=== PATIENT | male | born 1975 | race African-American/Black ===

== ENCOUNTER 2017-05-10 04:53 | Inpatient (IN) | payer MEDICAID, OTHER ==
[2017-05-10] VITALS (7 sets, daily range): BP systolic 119–148; BP diastolic 66–101; PULSE 50–91; RESP 16–18; TEMP 97.6–98.4; O2SAT 97–99
[~2017-05-10] VITALS: Ht 193 cm; Wt 77.0 kg
[~2017-05-10 04:53] MED LIST: FLUP125P IM; FLUP1TAB PO; PROP1TAB66 PO; TRAZ100T4 PO; ZYPR20TA PO
[2017-05-10] MEDS ORDERED: OLANZapine IM 10 MG VIAL IM ONE (05:15)
--- NOTE | 2017-05-10 05:28 | PD ---
HPI Chief Complaint: Psychiatric Symptoms Time Seen by Provider: 05:10 Travel History International Travel<30 days: No Contact w/Intl Traveler<30days: No Traveled to known affect area: No History of Present Illness HPI This is a 42-year-old male history of schizophrenia who presents for evaluation. Apparently he was dropped off by the police. Upon initial examination the patient is very disorganized, hyperverbal, requesting something to drink. When asked about his chief complaint today he reports "I'm depressed and looking for by . [facility] [place] the computers were blank and she didn't me." When asked about his history of schizophrenia and who his psychiatrist as he reports "[place] this patient is a poor historian secondary to his psychosis and decompensated schizophrenia and he was therefore placed under a López act for his own safety. PFSH Past Medical History Blood Disorders: No Bipolar Disorder: Yes Depression: Yes Cancer: No Cardiovascular Problems: No Diabetes: No Diminished Hearing: No Endocrine: No Genitourinary: No Headaches: No Immune Disorder: No Musculoskeletal: Yes Neurologic: No Psychiatric: Yes Respiratory: Yes Immunizations Current: Yes Schizophrenia: Yes Seizures: No Past Surgical History Abdominal Surgery: No AICD: No Cardiac Surgery: No Ear Surgery: No Endocrine Surgery: No Eye Surgery: Yes (STITCHES ABOVE EYE) Genitourinary Surgery: No Gynecologic Surgery: No Neurologic Surgery: No Oral Surgery: Yes (TEETH PULLED AND LIP SUTURED) Pacemaker: No Thoracic Surgery: No Other Surgery: No Social History Alcohol Use: Yes (per hx..DRINKS BEER ON OCCASION) Tobacco Use: Yes (1/2 PPD) Substance Use: Yes (marijuana, flakka) Allergies-Medications (Allergen,Severity, Reaction): Coded Allergies: sodium hypochlorite solution (Unverified Allergy, Mild, 05/10/17) Reported Meds & Prescriptions Reported Meds & Active Scripts Active No Active Prescriptions or Reported Medications Review of Systems ROS Limitations: Altered Mental Status, Psychotic Except as stated in HPI: all other systems reviewed are Neg Physical Exam Exam Limitations: Poor Historian, Combative, Psychotic Narrative GENERAL: Somewhat disheveled-appearing male who is agitated on initial examination. SKIN: Warm and dry. HEAD: Atraumatic. Normocephalic. EYES: Pupils equal and round. No scleral icterus. No injection or drainage. ENT: No nasal bleeding or discharge. Mucous membranes pink and moist. NECK: Trachea midline. No JVD. CARDIOVASCULAR: Regular rate and rhythm. No murmur appreciated. RESPIRATORY: No accessory muscle use. Clear to auscultation. Breath sounds equal bilaterally. GASTROINTESTINAL: Abdomen soft, non-tender, nondistended. Hepatic and splenic margins not palpable. MUSCULOSKELETAL: No obvious deformities. No clubbing. No cyanosis. No edema. NEUROLOGICAL: Awake and alert. No obvious cranial nerve deficits. Motor grossly within normal limits. Normal speech. PSYCHIATRIC: Insight and judgment are impaired. Disorganized thought process. Data Data Last Documented VS Vital Signs Date Time Temp Pulse Resp B/P (MAP) Pulse Ox O2 Delivery O2 Flow Rate FiO2 05/10/17 04:55 98.4 91 16 142/101 (115) 98 Orders Orders Complete Blood Count With Diff (05/10/17 05:03) Comprehensive Metabolic Panel (05/10/17 05:03) Psych Screen (05/10/17 05:03) Drug Screen, Random Urine (05/10/17 05:03) Alcohol (Ethanol) (05/10/17 05:03) Olanzapine Inj (Zyprexa Inj) (05/10/17 05:15) ^ Sitter (05/10/17 05:28) Lorazepam Inj (Ativan Inj) (05/10/17 05:48) Lorazepam Inj (Ativan Inj) (05/10/17 06:00) Restraints Violent (05/10/17 05:54) Labs Laboratory Tests Test 05/10/17 05:15 White Blood Count 7.9 TH/MM3 Red Blood Count 5.13 MIL/MM3 Hemoglobin 12.5 GM/DL Hematocrit 38.2 % Mean Corpuscular Volume 74.6 FL Mean Corpuscular Hemoglobin 24.4 PG Mean Corpuscular Hemoglobin Concent 32.7 % Red Cell Distribution Width 14.3 % Platelet Count 192 TH/MM3 Mean Platelet Volume 9.6 FL Neutrophils (%) (Auto) 68.3 % Lymphocytes (%) (Auto) 21.7 % Monocytes (%) (Auto) 7.8 % Eosinophils (%) (Auto) 1.2 % Basophils (%) (Auto) 1.0 % Neutrophils # (Auto) 5.4 TH/MM3 Lymphocytes # (Auto) 1.7 TH/MM3 Monocytes # (Auto) 0.6 TH/MM3 Eosinophils # (Auto) 0.1 TH/MM3 Basophils # (Auto) 0.1 TH/MM3 CBC Comment DIFF FINAL Differential Comment Blood Urea Nitrogen 16 MG/DL Creatinine 1.12 MG/DL Random Glucose 78 MG/DL Total Protein 7.9 GM/DL Albumin 4.0 GM/DL Calcium Level 9.2 MG/DL Alkaline Phosphatase 44 U/L Aspartate Amino Transf (AST/SGOT) 32 U/L Alanine Aminotransferase (ALT/SGPT) 33 U/L Total Bilirubin 0.6 MG/DL Sodium Level 141 MEQ/L Potassium Level 4.0 MEQ/L Chloride Level 107 MEQ/L Carbon Dioxide Level 23.5 MEQ/L Anion Gap 11 MEQ/L Estimat Glomerular Filtration Rate 88 ML/MIN Ethyl Alcohol Level LESS THAN 3 MG/DL MDM Medical Decision Making Medical Screen Exam Complete: Yes Emergency Medical Condition: Yes Medical Record Reviewed: Yes Differential Diagnosis Schizophrenia, acute psychosis, substance induced mood disorder, encephalitis, meningitis Narrative Course This patient was placed under López act secondary to decompensated schizophrenia and poor insight into his disease process. Zyprexa was initiated. Mental health screening discussed with the patient. Psychiatric screen ordered. The patient required additional sedation in the form of 1 mg Ativan and physical restraints. A sitter has been ordered. The lab work has been reviewed. He is medically cleared for psychiatric disposition. Diagnosis Primary Impression: Schizophrenia Qualified Codes: F20.9 - Schizophrenia, unspecified Scripts No Active Prescriptions or Reported Meds Siva Campos May 10, 2017 05:28
[2017-05-10 05:36] LABS: AUTOMATED NEUTROPHIL # 5.4 TH/MM3 (1.8-7.7); BASOPHIL # 0.1 TH/MM3 (0-0.2); EOSINOPHIL # 0.1 TH/MM3 (0-0.4); EOSINOPHIL % 1.2 % (0.0-4.0); HEMATOCRIT 38.2 % (39.0-51.0); HEMO FLAGS DIFF FINAL; LYMPH % 21.7 % (9.0-44.0); LYMPHOCYTE # 1.7 TH/MM3 (1.0-4.8); MEAN CELL VOLUME 74.6 FL (80.0-100.0); MEAN CORPUSCULAR HEMOGLOBIN 24.4 PG (27.0-34.0); MEAN CORPUSCULAR HGB CONC 32.7 % (32.0-36.0); MONO % 7.8 % (0.0-8.0); NEUT % 68.3 % (16.0-70.0); PLATELET COUNT 192 TH/MM3 (150-450); RED BLOOD COUNT 5.13 MIL/MM3 (4.50-5.90); RED CELL DISTRIBUTION WIDTH 14.3 % (11.6-17.2); WHITE BLOOD COUNT 7.9 TH/MM3 (4.0-11.0)
[2017-05-10] MEDS ORDERED: LORazepam 2 MG/ML VIAL ONE (05:48)
[2017-05-10 06:00] LABS: ALT (GPT) 33 U/L (12-78); ANION GAP 11 MEQ/L (5-15); AST (GOT) 32 U/L (15-37); BICARBONATE 23.5 MEQ/L (21.0-32.0); BLOOD UREA NITROGEN 16 MG/DL (7-18); CHLORIDE 107 MEQ/L (98-107); GLOMERULAR FILTRATION RATE 88 ML/MIN (>89); SODIUM (NA) 141 MEQ/L (136-145)
[2017-05-10] MEDS ORDERED: LORazepam 2 MG/ML VIAL IV PUSH ONE (06:00)
[2017-05-10 06:02] LABS: ALKALINE PHOSPHATASE 44 U/L (45-117); TOTAL BILIRUBIN ADULT 0.6 MG/DL (0.2-1.0)
[2017-05-10 06:12] LABS: ALCOHOL LESS THAN 3 MG/DL (0-5)
[2017-05-10] MEDS ORDERED: ACETAMINOPHEN 325 MG TAB PO PRN (15:00)
[2017-05-10] MEDS ORDERED: LORazepam 1 MG TAB PO PRN (15:00)
[2017-05-10] MEDS ORDERED: LORazepam 2 MG/ML VIAL IM PRN (15:00)
[2017-05-10] MEDS ORDERED: ALUMINUM/MAGNESIUM/SIMETH 30 ML CUP PO PRN (15:00)
[2017-05-10] MEDS ORDERED: MAGNESIUM HYDROXIDE SUSP 30 ML CUP PO PRN (15:00)
[2017-05-10] MEDS ORDERED: traZODone HCL 100 MG TAB PO SCH (21:00)
[2017-05-11 05:45] VITALS: BP 113/61; PULSE 61; RESP 17; TEMP 97.5; O2SAT 100
[2017-05-11] MEDS ORDERED: diphenhydrAMINE HCL 50 MG/ML VIAL IM ONE (08:15)
[2017-05-11] MEDS ORDERED: HALOPERIDOL LACTATE 5 MG/ML AMP IM ONE (08:15)
[2017-05-11] MEDS ORDERED: LORazepam 2 MG/ML VIAL IM ONE (08:15)
[2017-05-11 10:06] LABS: ANION GAP 6 MEQ/L (5-15); BLOOD UREA NITROGEN 15 MG/DL (7-18); CHLORIDE 108 MEQ/L (98-107); GLOMERULAR FILTRATION RATE 95 ML/MIN (>89); POTASSIUM 3.8 MEQ/L (3.5-5.1); SODIUM (NA) 140 MEQ/L (136-145)
[2017-05-11 10:13] LABS: HDL CHOLESTEROL 49.9 MG/DL (40.0-60.0); LDL CHOLESTEROL 79 MG/DL (0-99)
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
[2017-05-11] MEDS ORDERED: BENZTROPINE MESYLATE 2 MG/2 ML VIAL IM PRN (10:30)
[2017-05-11] MEDS ORDERED: HALOPERIDOL 5 MG TAB PO PRN (10:30)
[2017-05-11] MEDS ORDERED: HALOPERIDOL LACTATE 5 MG/ML AMP IM PRN (10:30)
[2017-05-11] MEDS ORDERED: BENZTROPINE MESYLATE 1 MG TAB PO PRN (11:00)
--- NOTE | 2017-05-11 11:00 | EKG ---
Date Performed: 05/11/2017 Time Performed: 09:46:45 PTAGE: 42 years EKG: SINUS BRADYCARDIA VOLTAGE CRITERIA FOR LVH ABNORMAL ECG PREVIOUS TRACING : 03/31/2016 20.11 No significant change from previous tracing noted. DOCTOR: Elliott Gutierrez Interpretating Date/Time 05/11/2017 11:00:03
[2017-05-11 12:10] LABS: HEMOGLOBIN A1a 1.7 %; HEMOGLOBIN A1b 0.8 %; HEMOGLOBIN Ao 83.1 %; HEMOGLOBIN F 2.6 %; HEMOGLOBIN LA1C 1.9 %; HEMOGLOBIN P3 3.8 %
[2017-05-11] MEDS ORDERED: LORazepam 1 MG TAB PO PRN (15:00)
[2017-05-11] MEDS ORDERED: LORazepam 2 MG/ML VIAL IM PRN (15:00)
--- NOTE | 2017-05-11 15:10 | PD.CONS ---
HPI Service [facility] Consult Requested By Psychiatry Reason for Consult Medical management Primary Care Physician Unknown Diagnoses: History of Present Illness 42 year-old -[place] male with a history of schizophrenia admitted to inpatient psychiatry under López act secondary to acute mood disorder, is being evaluated for BP of 142/101 on admission. Patient denies any prior diagnosis of hypertension. He currently denies any chest pain or shortness of breath. He has a family history positive for hypertension. Review of Systems Except as stated in HPI: all other systems reviewed are Neg Past Family Social History Allergies: Coded Allergies: sodium hypochlorite solution (Unverified Allergy, Mild, 05/10/17) Past Medical History Blood Disorders: No Bipolar Disorder: Yes Depression: Yes Schizophrenia: Yes Past Surgical History Eye Surgery: Yes (STITCHES ABOVE EYE) Oral Surgery: Yes (TEETH PULLED AND LIP SUTURED) Family History Father has a history of hypertension Mother Has history of schizophrenia Social History Alcohol Use: Yes (per hx..DRINKS BEER ON OCCASION) Tobacco Use: Yes (1/2 PPD) Substance Use: Yes (marijuana, flakka) Physical Exam Vital Signs Vital Signs Date Time Temp Pulse Resp B/P (MAP) Pulse Ox O2 Delivery O2 Flow Rate FiO2 05/11/17 05:45 97.5 61 17 113/61 (78) 100 05/10/17 15:45 98.1 51 18 130/77 (94) Physical Exam GENERAL: This is a well-nourished, well-developed patient, in no apparent distress. SKIN: No rashes, ecchymoses or lesions. Cool and dry. HEAD: Atraumatic. Normocephalic. No temporal or scalp tenderness. EYES: Pupils equal round and reactive. Extraocular motions intact. No scleral icterus. No injection or drainage. ENT: Nose without bleeding, purulent drainage or septal hematoma. Throat without erythema, tonsillar hypertrophy or exudate. Uvula midline. Airway patent. NECK: Trachea midline. No JVD or lymphadenopathy. Supple, nontender, no meningeal signs. CARDIOVASCULAR: Regular rate and rhythm without murmurs, gallops, or rubs. RESPIRATORY: Clear to auscultation. Breath sounds equal bilaterally. No wheezes , rales, or rhonchi. GASTROINTESTINAL: Abdomen soft, non-tender, nondistended. No hepato-splenomegaly , or palpable masses. No guarding. MUSCULOSKELETAL: Extremities without clubbing, cyanosis, or edema. No joint tenderness, effusion, or edema noted. No calf tenderness. Negative Homans sign bilaterally. NEUROLOGICAL: Awake and alert. Cranial nerves II through XII intact. Motor and sensory grossly within normal limits. Five out of 5 muscle strength in all muscle groups. Normal speech. Laboratory Laboratory Tests Test 05/11/17 09:16 Blood Urea Nitrogen 15 Creatinine 1.05 Random Glucose 62 Calcium Level 8.7 Sodium Level 140 Potassium Level 3.8 Chloride Level 108 Carbon Dioxide Level 26.0 Anion Gap 6 Estimat Glomerular Filtration Rate 95 Hemoglobin A1c 5.8 Triglycerides Level 39 Cholesterol Level 137 LDL Cholesterol 79 HDL Cholesterol 49.9 Cholesterol/HDL Ratio 2.74 Result Diagram: 05/10/17 0515 05/11/17 0916 Assessment and Plan Assessment and Plan 42-year-old man with Schizophrenia Acute Mood disorder Management per psychiatry Essential hypertension Start Norvasc 5 mg daily Normal LDL therefore no need to initiate statin therapy DVT prophylaxis: Encourage ambulation Thank you for this consultation; [facility] will sign off and reconsult when necessary Code Status Full code Discussed Condition With Patient Alexander Peacock MD May 11, 2017 15:10
[2017-05-11 18:04] VITALS: BP 113/75; PULSE 54; RESP 18; TEMP 97.9; O2SAT 99
[2017-05-11] MEDS: OLANZapine ODT 20 MG TAB PO SCH (20:44)
[2017-05-11] MEDS: DIVALPROEX SODIUM E.R. 500 MG TAB PO SCH (20:44)
[2017-05-11] MEDS: BENZTROPINE MESYLATE 1 MG TAB PO SCH (20:44)
[2017-05-12 05:50] VITALS: BP 118/58; PULSE 65; RESP 18; TEMP 97.3; O2SAT 98
[2017-05-12] MEDS: DIVALPROEX SODIUM E.R. 500 MG TAB PO SCH ×2 (09:29→21:08)
[2017-05-12] MEDS: amLODIPine BESYLATE 5 MG TAB PO SCH (09:29)
[2017-05-12] MEDS: BENZTROPINE MESYLATE 1 MG TAB PO SCH ×2 (09:30→21:08)
--- NOTE | 2017-05-12 12:47 | HHI.PYPN ---
Subjective Remarks Patient seen and examined with nurse. Chart reviewed. Case discussed with nursing staff who reports patient has been cooperative. Reporting a female voice guiding him like an janeth from [employer]. On my examination today, patient is calm and cooperative. Says that he was hearing angels voices and could feel them "like ghosts." Affect euthymic. Slept well overnight. Remains agreeable to placement. Denies side effects from medications. No physical complaints. Review of Systems ROS Limitations: Psychotic, Poor Historian Except as stated in HPI: all other systems reviewed are Neg Objective Alert: Yes [place]: Person, Place Mood: Calm Affect: Euthymic Memory Intact: Comment (not formally assessed) Hallucinations: Auditory (angels voices), Visual (angels) Delusions: No Delusion Type: Other (none) Suicidal: Ideation (no SI) Homicidal: Ideation (no HI) Insight/Judgment Poor Remarks No motor abnormalities noted. Thought process fairly linear. Grooming and hygiene fair. Labs Labs reviewed. Extended urine toxicology pending. Vitals/IOs Vital Signs Date Time Temp Pulse Resp B/P (MAP) Pulse Ox O2 Delivery O2 Flow Rate FiO2 05/12/17 05:50 97.3 65 18 118/58 (78) 98 05/10/17 13:06 Room Air Assessment & Plan Problem List: (1) Schizophrenia ICD Codes: F20.9 - Schizophrenia, unspecified Status: Acute (2) Cannabis abuse ICD Codes: F12.10 - Cannabis abuse, uncomplicated Status: Chronic Assessment & Plan Patient still verbalizing some psychotic symptoms and requires more time for antipsychotics to exert full effect. Continue Prolixin and Zyprexa as ordered. Could consider Prolixin Dec. Continue Depakote as ordered. Check a Depakote level beginning of next week. Continue other medications and care as ordered. Patient may sign voluntary. Justification for Cont. Inpt. Impairment in reality construction. High risk for decompensation in less restrictive environment. Discharge Planning Pending psychiatric stabilization. ?Placement Request HC Surrog/Guard Advoc?: No Problem Qualifiers (1) Schizophrenia: Qualified Codes: F20.3 - Undifferentiated schizophrenia Mt Bhat MD May 12, 2017 12:47
[2017-05-12 17:49] VITALS: BP 149/95; PULSE 54; RESP 18; TEMP 97.8; O2SAT 100
[2017-05-12] MEDS: OLANZapine ODT 20 MG TAB PO SCH (21:12)
[2017-05-13 06:00] VITALS: BP 131/91; PULSE 54; RESP 18; TEMP 97.5; O2SAT 99
[2017-05-13] MEDS: amLODIPine BESYLATE 5 MG TAB PO SCH (09:28)
[2017-05-13] MEDS: BENZTROPINE MESYLATE 1 MG TAB PO SCH ×2 (09:28→20:54)
[2017-05-13] MEDS: DIVALPROEX SODIUM E.R. 500 MG TAB PO SCH ×2 (09:28→20:54)
[2017-05-13 18:36] VITALS: BP 124/74; PULSE 64; RESP 18; TEMP 97.6; O2SAT 97
[2017-05-13] MEDS: OLANZapine ODT 20 MG TAB PO SCH (20:54)
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
[2017-05-14 06:05] VITALS: BP 116/77; PULSE 50; RESP 18; TEMP 97.1; O2SAT 98
[2017-05-14] MEDS: BENZTROPINE MESYLATE 1 MG TAB PO SCH ×2 (09:00→20:57)
[2017-05-14] MEDS: DIVALPROEX SODIUM E.R. 500 MG TAB PO SCH ×2 (09:00→20:56)
[2017-05-14] MEDS: amLODIPine BESYLATE 5 MG TAB PO SCH (09:00)
--- NOTE | 2017-05-14 12:17 | HHI.PYPN ---
Subjective Remarks Pt seen and discussed with staff. He remains labile and disorganized. He is compliant with medications.He remains paranoid and states that staff may be trying to set him up. "It's that black box. You didn't know I knew about the black box! That's how they set me up." Staff report that pt has been easier to de-escalate and has been more cooperative with care. Objective Alert: Yes [place]: Person, Place, Date Mood: Anxious Affect: Labile Memory Intact: Comment (fair) Hallucinations: Auditory Delusions: Yes Delusion Type: Paranoid Suicidal: Ideation (no SI) Homicidal: Ideation (no HI) Insight/Judgment poor Labs Test 05/14/17 11:18 Ammonia 19 MCMOL/L Valproic Acid (Depakene) Level 54 MCG/ML Vitals/IOs Vital Signs Date Time Temp Pulse Resp B/P (MAP) Pulse Ox O2 Delivery O2 Flow Rate FiO2 05/14/17 06:05 97.1 50 18 116/77 (90) 98 05/10/17 13:06 Room Air Assessment & Plan Problem List: (1) Schizophrenia ICD Codes: F20.9 - Schizophrenia, unspecified Status: Acute (2) Cannabis abuse ICD Codes: F12.10 - Cannabis abuse, uncomplicated Status: Chronic Assessment & Plan Continue current tx plan. Estimated LOS: days Justification for Cont. Inpt. impairments in reality testing Request HC Surrog/Guard Advoc?: No Problem Qualifiers (1) Schizophrenia: Qualified Codes: F20.3 - Undifferentiated schizophrenia Tawanna Acosta MD May 14, 2017 12:17
[2017-05-14 18:43] VITALS: BP 141/94; PULSE 73; RESP 16; TEMP 98.3; O2SAT 98
[2017-05-14] MEDS: OLANZapine ODT 20 MG TAB PO SCH (20:57)
[2017-05-15 06:11] VITALS: BP 121/80; PULSE 54; RESP 18; TEMP 97.2; O2SAT 98
[2017-05-15] MEDS: BENZTROPINE MESYLATE 1 MG TAB PO SCH (09:21)
[2017-05-15] MEDS: amLODIPine BESYLATE 5 MG TAB PO SCH (09:21)
[2017-05-15] MEDS: DIVALPROEX SODIUM E.R. 500 MG TAB PO SCH (09:22)
[2017-05-15] MEDS ORDERED: FLUP10TA PO (09:25)
[2017-05-15] MEDS ORDERED: AMLO5 PO (09:25)
[2017-05-15] MEDS ORDERED: Benztropine PO (09:25)
[2017-05-15] MEDS ORDERED: DEPA500T3 PO (09:25)
[2017-05-15] MEDS ORDERED: FLUP1INJ IM (09:25)
[2017-05-15] MEDS ORDERED: OLANZ20 PO (09:25)
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
[2017-05-17 08:25] LABS: ECSTASY (MDMA) UR NEG (NEG); HEROIN (6-ACETYLMORPHINE) UR NEG (NEG); OBMETHADONE UR NEG (NEG); PHENCYCLIDINE URINE NEG (NEG)
[2017-05-17 08:26] LABS: BATH SALTS (MDPV) UR NEG (NEG); GABAPENTIN UR NEG (NEG); HYDROMORPHONE U NEG (NEG); K2 SPICE UR NEG (NEG)
[2017-05-18] MEDS ORDERED: DEPA500T3 PO (10:49)
[2017-05-18] MEDS ORDERED: ZYPR20TA PO (10:49)
[2017-05-18] MEDS ORDERED: FLUP10TA PO (10:49)
[2017-05-18] MEDS ORDERED: BENZ0.5T PO (10:49)
== END 2017-05-15 12:15 | disposition home or self-care (01) | DRG 885 ==
LOC: NEPD 04:53 → NEDA 14:36 → H270 15:26
PROVIDERS: ADMIT Psychiatry & Neurology Psychiatry; ATTEND Psychiatry & Neurology Psychiatry
DX: F20.3 Undifferentiated schizophrenia (principal); Z78.1 Physical restraint status; R45.851 Suicidal ideations; F12.10 Cannabis abuse, uncomplicated; Z59.0 Homelessness; F17.210 Nicotine dependence, cigarettes, uncomplicated; I10 Essential (primary) hypertension
CPT/HCPCS: 80048; 80053; 80061; 80164; 80307; 82140; 83036; 85025; 93005; 96372; 96374; G0481; J1200; J1630; J2060; J2680

== ENCOUNTER 2017-05-23 15:47 | Inpatient (IN) | payer OTHER ==
[~2017-05-23] VITALS: Ht 185.4 cm; Wt 86.4 kg
[~2017-05-23 15:47] MED LIST changes: +AMLO5 PO; +BENZ0.5T PO; +Benztropine PO; +DEPA500T3 PO; +FLUP10TA PO; -FLUP125P IM; +FLUP1INJ IM; -FLUP1TAB PO; +OLANZ20 PO; -PROP1TAB66 PO; -TRAZ100T4 PO
--- NOTE | 2017-05-23 16:43 | PD ---
HPI Chief Complaint: Psychiatric Symptoms Time Seen by Provider: 16:30 Travel History International Travel<30 days: No Contact w/Intl Traveler<30days: No Traveled to known affect area: No History of Present Illness HPI 42-year-old male presents under ex parte a signed by a care associate. According to the paperwork the patient was yelling outside of his mother's apartment, stating that he would kill someone, pacing back and forth in a rage, cursing and yelling and verbally aggressive. Furthermore he has been having auditory hallucinations. He has a history of paranoia, schizophrenia. He reportedly is not taking his medications. On my Examination the patient is very agitated. He reports that he has been taking his medication as prescribed. He denies any suicidal or homicidal ideation. He endorses occasional marijuana use. He has no other complaints. PFSH Past Medical History Blood Disorders: No Bipolar Disorder: Yes Depression: Yes Cancer: No Cardiovascular Problems: No Diabetes: No Diminished Hearing: No Endocrine: No Genitourinary: No Headaches: No Immune Disorder: No Musculoskeletal: Yes Neurologic: No Psychiatric: Yes (Hx of treatment for Schizophrenia) Reproductive: No Respiratory: No Immunizations Current: Yes Schizophrenia: Yes Seizures: No Past Surgical History Abdominal Surgery: No AICD: No Cardiac Surgery: No Ear Surgery: No Endocrine Surgery: No Eye Surgery: Yes (STITCHES ABOVE EYE) Genitourinary Surgery: No Gynecologic Surgery: No Neurologic Surgery: No Oral Surgery: Yes (TEETH PULLED AND LIP SUTURED) Pacemaker: No Thoracic Surgery: No Other Surgery: No Social History Alcohol Use: Yes (per hx..DRINKS BEER ON OCCASION) Tobacco Use: Yes (1/2 PPD) Substance Use: Yes (POT AND FLAKKA) Allergies-Medications (Allergen,Severity, Reaction): Coded Allergies: sodium hypochlorite solution (Unverified Allergy, Mild, 05/10/17) Reported Meds & Prescriptions Reported Meds & Active Scripts Active Depakote ER (Divalproex Sodium) 500 Mg Parvin 500 Mg PO BID 5 Days Benztropine (Benztropine Mesylate) 0.5 Mg Tab 1 Mg PO BID 5 Days Zyprexa (Olanzapine) 20 Mg Tab 20 Mg PO HS 5 Days Fluphenazine (Fluphenazine HCl) 10 Mg Tab 10 Mg PO BID Fluphenazine Decanoate Inj (Fluphenazine Decanoate) 125 Mg/5 Ml Inj 25 Mg IM Q21D This dose of Prolixn Dec is due on 06/05/2017. [Benztropine] 1 MG Tab 1 Mg PO Q12HR 15 Days Zyprexa Zydis (Olanzapine) 20 Mg Tab 20 Mg PO HS 15 Days Fluphenazine (Fluphenazine HCl) 10 Mg Tab 10 Mg PO BID 15 Days Take oral Prolixin until directed otherwise by outpatient provider. Be sure to get your next Prolixin Decanoate injection. Depakote ER (Divalproex Sodium) 500 Mg Parvin 500 Mg PO BID 15 Days Norvasc (Amlodipine Besylate) 5 Mg Tab 5 Mg PO DAILY 15 Days Review of Systems Except as stated in HPI: all other systems reviewed are Neg Physical Exam Narrative GENERAL: Well-developed well-nourished male who is agitated and verbally aggressive. SKIN: Warm and dry. HEAD: Atraumatic. Normocephalic. EYES: Pupils equal and round. No scleral icterus. No injection or drainage. ENT: No nasal bleeding or discharge. Mucous membranes pink and moist. NECK: Trachea midline. No JVD. CARDIOVASCULAR: Regular rate and rhythm. No murmur appreciated. RESPIRATORY: No accessory muscle use. Clear to auscultation. Breath sounds equal bilaterally. GASTROINTESTINAL: Abdomen soft, non-tender, nondistended. Hepatic and splenic margins not palpable. MUSCULOSKELETAL: No obvious deformities. No clubbing. No cyanosis. No edema. NEUROLOGICAL: Awake and alert. No obvious cranial nerve deficits. Motor grossly within normal limits. Normal speech. PSYCHIATRIC: Insight and judgment appear limited. Agitated. Aggressive. Data Data Last Documented VS Vital Signs Date Time Temp Pulse Resp B/P (MAP) Pulse Ox O2 Delivery O2 Flow Rate FiO2 05/23/17 18:21 63 18 126/72 (90) 99 05/23/17 17:02 98.1 Orders Orders Complete Blood Count With Diff (05/23/17 16:40) Comprehensive Metabolic Panel (05/23/17 16:40) Psych Screen (05/23/17 16:40) Haloperidol Inj (Haldol Inj) (05/23/17 16:45) Lorazepam Inj (Ativan Inj) (05/23/17 16:45) Drug Screen, Random Urine (05/23/17 16:40) Alcohol (Ethanol) (05/23/17 16:40) ^ Sitter (05/23/17 16:40) Labs Laboratory Tests Test 05/23/17 16:50 05/23/17 17:30 White Blood Count 4.9 TH/MM3 Red Blood Count 4.87 MIL/MM3 Hemoglobin 12.0 GM/DL Hematocrit 36.2 % Mean Corpuscular Volume 74.3 FL Mean Corpuscular Hemoglobin 24.6 PG Mean Corpuscular Hemoglobin Concent 33.1 % Red Cell Distribution Width 14.3 % Platelet Count 202 TH/MM3 Mean Platelet Volume 9.8 FL Neutrophils (%) (Auto) 51.5 % Lymphocytes (%) (Auto) 32.3 % Monocytes (%) (Auto) 10.1 % Eosinophils (%) (Auto) 5.3 % Basophils (%) (Auto) 0.8 % Neutrophils # (Auto) 2.5 TH/MM3 Lymphocytes # (Auto) 1.6 TH/MM3 Monocytes # (Auto) 0.5 TH/MM3 Eosinophils # (Auto) 0.3 TH/MM3 Basophils # (Auto) 0.0 TH/MM3 CBC Comment DIFF FINAL Differential Comment Blood Urea Nitrogen 11 MG/DL Creatinine 1.04 MG/DL Random Glucose 77 MG/DL Total Protein 6.5 GM/DL Albumin 3.3 GM/DL Calcium Level 8.2 MG/DL Alkaline Phosphatase 41 U/L Aspartate Amino Transf (AST/SGOT) 15 U/L Alanine Aminotransferase (ALT/SGPT) 24 U/L Total Bilirubin 0.3 MG/DL Sodium Level 140 MEQ/L Potassium Level 3.8 MEQ/L Chloride Level 108 MEQ/L Carbon Dioxide Level 27.0 MEQ/L Anion Gap 5 MEQ/L Estimat Glomerular Filtration Rate 96 ML/MIN Ethyl Alcohol Level 4 MG/DL Urine Opiates Screen NEG Urine Barbiturates Screen NEG Urine Amphetamines Screen NEG Urine Benzodiazepines Screen NEG Urine Cocaine Screen NEG Urine Cannabinoids Screen POS MDM Medical Decision Making Medical Screen Exam Complete: Yes Emergency Medical Condition: Yes Medical Record Reviewed: Yes Differential Diagnosis Schizophrenia, medication noncompliance, acute psychosis, substance induced mood disorder, adjustment reaction Narrative Course 42-year-old male history of schizophrenia presents under ex parte for psychiatric evaluation. He is very aggressive and agitated on initial examination and therefore he will be administered Haldol and Ativan. A sitter will be ordered. Mental health screening discussed with the patient. Psychiatric screen ordered. The patient is medically cleared for psychiatric disposition. Diagnosis Primary Impression: Schizophrenia Qualified Codes: F20.9 - Schizophrenia, unspecified Siva Campos May 23, 2017 16:43
[2017-05-23] MEDS ORDERED: HALOPERIDOL LACTATE 5 MG/ML AMP IM ONE (16:45)
[2017-05-23] MEDS ORDERED: LORazepam 2 MG/ML VIAL IM ONE (16:45)
[2017-05-23 17:02] VITALS: BP 148/72; PULSE 68; RESP 20; TEMP 98.1; O2SAT 99
[2017-05-23 17:36] LABS: AUTOMATED NEUTROPHIL # 2.5 TH/MM3 (1.8-7.7); BASOPHIL % 0.8 % (0.0-2.0); EOSINOPHIL # 0.3 TH/MM3 (0-0.4); EOSINOPHIL % 5.3 % (0.0-4.0); HEMATOCRIT 36.2 % (39.0-51.0); HEMO FLAGS DIFF FINAL; LYMPH % 32.3 % (9.0-44.0); LYMPHOCYTE # 1.6 TH/MM3 (1.0-4.8); MEAN CELL VOLUME 74.3 FL (80.0-100.0); MEAN CORPUSCULAR HEMOGLOBIN 24.6 PG (27.0-34.0); MEAN CORPUSCULAR HGB CONC 33.1 % (32.0-36.0); MONO % 10.1 % (0.0-8.0); NEUT % 51.5 % (16.0-70.0); PLATELET COUNT 202 TH/MM3 (150-450); RED BLOOD COUNT 4.87 MIL/MM3 (4.50-5.90); RED CELL DISTRIBUTION WIDTH 14.3 % (11.6-17.2); WHITE BLOOD COUNT 4.9 TH/MM3 (4.0-11.0)
[2017-05-23 17:56] LABS: ANION GAP 5 MEQ/L (5-15); AST (GOT) 15 U/L (15-37); BLOOD UREA NITROGEN 11 MG/DL (7-18); CHLORIDE 108 MEQ/L (98-107); GLOMERULAR FILTRATION RATE 96 ML/MIN (>89); POTASSIUM 3.8 MEQ/L (3.5-5.1); SODIUM (NA) 140 MEQ/L (136-145)
[2017-05-23 17:57] LABS: ALCOHOL 4 MG/DL (0-5); ALT (GPT) 24 U/L (12-78)
[2017-05-23 17:59] LABS: ALKALINE PHOSPHATASE 41 U/L (45-117); TOTAL BILIRUBIN ADULT 0.3 MG/DL (0.2-1.0)
[2017-05-23 18:21] VITALS: BP 126/72; PULSE 63; RESP 18; O2SAT 99
[2017-05-23 22:44] VITALS: BP 115/82; PULSE 61; RESP 16; TEMP 97.8; O2SAT 96
[2017-05-23] MEDS ORDERED: diphenhydrAMINE HCL 50 MG/ML VIAL - HS PRN IM (22:45)
[2017-05-23] MEDS ORDERED: MAGNESIUM HYDROXIDE SUSP 30 ML CUP PO PRN (22:45)
[2017-05-23] MEDS ORDERED: ACETAMINOPHEN 325 MG TAB PO PRN (22:45)
[2017-05-23] MEDS ORDERED: LORazepam 2 MG/ML VIAL IM PRN (22:45)
[2017-05-23] MEDS ORDERED: ALUMINUM/MAGNESIUM/SIMETH 30 ML CUP PO PRN (22:45)
[2017-05-24 05:42] VITALS: BP 127/78; PULSE 45; RESP 18; TEMP 97.2; O2SAT 98
[2017-05-24] MEDS: NICOTINE 21 MG/24 HR PATCH T-DERMAL SCH (09:00)
[2017-05-24] MEDS: amLODIPine BESYLATE 5 MG TAB PO SCH (09:25)
[2017-05-24] MEDS: DIVALPROEX SODIUM E.R. 500 MG TAB PO SCH ×2 (09:25→20:54)
[2017-05-24] MEDS: BENZTROPINE MESYLATE 1 MG TAB PO SCH ×2 (09:25→20:54)
--- NOTE | 2017-05-24 09:51 | HHI.HP ---
Provisional Diagnosis Admission Date May 23, 2017 at 21:38 [place] I. 1. Schizophrenia, undifferentiated type, acute exacerbation 2. Cannabis abuse [place] II. Deferred Certification of Person's Competence To Provide Express and Informed Consent I have personally examined Charles Escobar , a person being served at [facility] on, May 24, 2017 09:51. Express and informed consent means consent voluntarily given in writing, by a competent person, after sufficient explanation and disclosure of the subject matter involved to enable the person to make a knowing and willful decision without any element of force, fraud, deceit, duress, or other form of constraint or coercion. This person is 18 years of age or older, is not now known to be incompetent to consent to treatment with a guardian advocate, and does not have a health care surrogate or proxy currently making medical treatment decisions. I have found this person to be one of the following: [] Competent to provide express and informed consent, as defined above, for voluntary admission to this facility and is competent to provide express and informed consent for treatment. He/she has the consistent capacity to make well reasoned, willful, and knowing decisions concerning his or her medical or mental health treatment. The person fully and consistently understands the purpose of the admission for examination/placement and is fully capable of personally exercising all rights assured [place] [x] Incompetent to provide express and informed consent to voluntary admission, and this is incompetent to provide express and informed consent to treatment. The person must be transferred to involuntary status and a petition for a guardian advocate filed with the Circuit Court. [] Refusing to provide express and informed consent to voluntary admission but is competent to provide express and informed consent for treatment. The person must be discharged or transferred to involuntary status. Form shall be completed within 24 hours of a person's arrival at the receiving facility and filed in the clinical record of each person: 1. Admitted on a voluntary basis 2. Permitted to provide express and informed consent to his/her own treatment 3. Allowed to transfer from involuntary to voluntary status 4. Prior to permitting a person to consent to his or her own treatment after having been previously found incompetent to consent to treatment. History of Present Illness Capacity: Lacks Capacity HPI Mr. Escobar is a 42-year-old male with a history of schizophrenia and cannabis use issues, well known to the psychiatric service here from multiple prior inpatient psychiatric admissions. He was most recently hospitalized here under my care from 05/10- of this year. He returns under an ex parte order initiated by the patient's mother alleging that the patient has not been taking his medications and has been threatening to kill someone. Electronic medical record reviewed. Patient seen and examined with counselor and nurse. On my examination today, the patient presents as somewhat argumentative, intrusive and irritable. He is quite defensive and says "they say I wasn't taking my meds. I went to my Auntie 's house. Someone stole my meds." However, he later says that his provider at [facility] told him he only needed to take his meds p.r.n.. He denies the allegations of threats of violence listed in the ex parte, saying "every time I come and talk to my mom" the two argue. Affect is dysphoric. He denies AVH but appears internally stimulated. He denies SI or HI but seems unreliable to contract for safety. Paranoia is present. His thought process is somewhat tangential, and he rambles at times about "monkeys or idiots." He says that he followed up with his outpatient provider at [facility]. He admits to ongoing cannabis use. Remainder of the psychiatric ROS is negative. I obtained patient's past psychiatric, family, chemical dependency and social history during my recent H&P under visit number [id number]. These data are materially unchanged today. Review of Systems ROS Limitations: Psychotic, Poor Historian Except as stated in HPI: all other systems reviewed are Neg Past Psych History Psychological trauma history No reported trauma history. Violence risk - others (6 mos) Concern for elevated risk. Threats of violence per ex parte. Patient is psychotic and unpredictable. Violence risk - self (6 mos) Indeterminate. Patient is psychotic and unpredictable. Substance Abuse History Drugs/Alcohol past 12 months Admits to ongoing cannabis use Past Family Social History Coded Allergies: sodium hypochlorite solution (Unverified Allergy, Mild, 05/10/17) Past Medical History See electronic medical record Active Scripts Olanzapine (Zyprexa) 20 Mg Tab, 20 MG PO HS for Mental Health for 5 Days, TAB 0 Refills Prov:Mt Bhat MD 05/18/17 Fluphenazine Decanoate Inj (Fluphenazine Decanoate Inj) 125 Mg/5 Ml Inj, 25 MG IM Q21D for Mental Health, #1 VIAL 0 Refills This dose of Prolixn Dec is due on 06/05/2017. Prov:Mt Bhat MD 05/15/17 [Benztropine] 1 MG TAB No Conflict Check, 1 MG PO Q12HR for Side effect management for 15 Days, 1 Refill Prov:Mt Bhat MD 05/15/17 Olanzapine Odt (Zyprexa Zydis) 20 Mg Tab, 20 MG PO HS for Mental Health for 15 Days, TAB 1 Refill Prov:Mt Bhat MD 05/15/17 Fluphenazine (Fluphenazine) 10 Mg Tab, 10 MG PO BID for Mental Health for 15 Days, TAB 1 Refill Take oral Prolixin until directed otherwise by outpatient provider. Be sure to get your next Prolixin Decanoate injection. Prov:Mt Bhat MD 05/15/17 Divalproex ER (Depakote ER) 500 Mg Parvin, 500 MG PO BID for Mental Health for 15 Days, TAB 1 Refill Prov:Mt Bhat MD 05/15/17 Amlodipine (Norvasc) 5 Mg Tab, 5 MG PO DAILY for Blood Pressure Management for 15 Days, TAB 1 Refill Prov:Mt Bhat MD 05/15/17 Discontinued Scripts Divalproex ER (Depakote ER) 500 Mg Parvin, 500 MG PO BID for Control Seizures for 5 Days, TAB 0 Refills Prov:Mt Bhat MD 05/18/17 Benztropine (Benztropine) 0.5 Mg Tab, 1 MG PO BID for Mental Health for 5 Days, TAB 0 Refills Prov:Mt Bhat MD 05/18/17 Fluphenazine (Fluphenazine) 10 Mg Tab, 10 MG PO BID for Mental Health, #5 TAB 00 Refills Prov:Mt Bhat MD 05/18/17 Current Medications Medications (Trade) Dose Ordered Sig/Cole Route Start Time Stop Time Status Last Admin (Norvasc) 5 mg DAILY PO 05/24/17 09:00 05/24/17 09:25 (Depakote Er) 500 mg BID PO 05/24/17 09:00 05/24/17 09:25 (Prolixin) 10 mg BID PO 05/24/17 09:00 05/24/17 09:25 (ZyPREXA ZYDIS ODT) 20 mg HS PO 05/24/17 21:00 (Ativan) 1 mg Q6H PRN PO 05/23/17 22:45 (Ativan Inj) 1 mg Q6H PRN IM 05/23/17 22:45 (Benadryl) 50 mg HS PRN PO 05/23/17 22:45 (Benadryl Inj) 50 mg HS PRN IM 05/23/17 22:45 (Tylenol) 650 mg Q4H PRN PO 05/23/17 22:45 (Milk Of Magnesia Liq) 30 ml DAILY PRN PO 05/23/17 22:45 (Mag-Al Plus Susp Liq) 30 ml Q6H PRN PO 05/23/17 22:45 (Habitrol 21 Mg Patch.24 Hr) 1 patch DAILY T-DERMAL 05/24/17 09:00 Miscellaneous Information 1 HS T-DERMAL 05/24/17 21:00 (Prolixin Decanoate Inj) 25 mg Q21D IM 06/05/17 09:00 (Cogentin) 1 mg BID PO 05/24/17 09:00 05/24/17 09:25 Family History See above Social History See above Patient's Strengths (min. 2) In a monitored setting. Verbally fluent. Physical Exam Physical exam completed by ED provider. On my examination today, the patient appears to be in no acute physical distress. No motor abnormalities noted. Labs and vitals reviewed: Vital Signs Vital Signs Date Time Temp Pulse Resp B/P (MAP) Pulse Ox O2 Delivery O2 Flow Rate FiO2 05/24/17 05:42 97.2 45 18 127/78 (94) 98 Lab Results Item Value Date Time White Blood Count 4.9 TH/MM3 05/23/17 1650 Hemoglobin 12.0 GM/DL L 05/23/17 1650 Platelet Count 202 TH/MM3 05/23/17 1650 Potassium Level 3.8 MEQ/L 05/23/17 1650 Sodium Level 140 MEQ/L 05/23/17 1650 Chloride Level 108 MEQ/L H 05/23/17 1650 Carbon Dioxide Level 27.0 MEQ/L 05/23/17 1650 Anion Gap 5 MEQ/L 05/23/17 1650 Blood Urea Nitrogen 11 MG/DL 05/23/17 1650 Creatinine 1.04 MG/DL 05/23/17 1650 Random Glucose 77 MG/DL 05/23/17 1650 Aspartate Amino Transf (AST/SGOT) 15 U/L 05/23/17 1650 Alanine Aminotransferase (ALT/SGPT) 24 U/L 05/23/17 1650 Alkaline Phosphatase 41 U/L L 05/23/17 1650 Urine Cannabinoids Screen POS H 05/23/17 1730 Ethyl Alcohol Level 4 MG/DL 05/23/17 165 Anemia is chronic. Mental Status Examination No abnormal motor movements noted. Appearance Somewhat disheveled. Poor dentition. Speech: Rapid, Other (rambling at times) Orientation: Person, Place Memory: Impaired (describe) (confabulates) Thought Process: Tangential Thought Content: Paranoid Language Unremarkable Fund of Knowledge average Hallucination Type: Auditory (appears internally preoccupied) Attention and Concentration: Easily Distracted Suicidal Ideation: No Previous Suicide Attempts: No Homicidal Ideation: No Previous Homicide Attempts: No Insight: Poor Judgment: Poor Affect: Irritable Mood: Other (dysphoric) Motor Activity: Normal gait Assessment & Plan Problem List: (1) Schizophrenia ICD Codes: F20.9 - Schizophrenia, unspecified Status: Acute (2) Cannabis abuse ICD Codes: F12.10 - Cannabis abuse, uncomplicated Status: Chronic Assessment & Plan 42-year-old male with psychiatric history as detailed above who presents under an ex parte order initiated by his mother. On my examination today, the patient presents as paranoid and internally stimulated. He admits to ongoing cannabis use and medication non-adherence (although he insists that either his meds were stolen or he was told he could take them p.r.n.). Allegations of violence in ex parte are particularly concerning. I fear course of patient's illness is worsening, and he may require extended stabilization or placement following inpatient psychiatric stabilization. Admit inpatient. Involuntary status. I've completed first opinion. Consult for second opinion. Request healthcare surrogate and guardian advocate. Check a Depakote level, although I suspect this will be low indicating nonadherence. Resume previously efficacious psychotropic medications including Depakote, Prolixin and Zyprexa at bedtime. Patient has Prolixin Decanoate ordered for ; to consider titrating the dose. Haldol as needed for psychotic agitation, Ativan as needed for anxiety, Benadryl as needed for EPS or sleep. Vitals every shift. Counselor to see. Disposition planning. Estimated length of stay : 2-3 weeks. Discharge Planning Pending stabilization. Request HC Surrog/Guard Advoc?: Yes Problem Qualifiers (1) Schizophrenia: Qualified Codes: F20.3 - Undifferentiated schizophrenia Mt Bhat MD May 24, 2017 09:51
[2017-05-24] MEDS ORDERED: HALOPERIDOL 5 MG TAB PO PRN (11:00)
[2017-05-24] MEDS ORDERED: HALOPERIDOL LACTATE 5 MG/ML AMP IM PRN (11:00)
[2017-05-24 18:09] VITALS: BP 144/95; PULSE 70; RESP 16; TEMP 98.2
[2017-05-24] MEDS: OLANZapine ODT 20 MG TAB PO SCH (20:54)
[2017-05-24] MEDS: REMOVE OLD NICOTINE PATCH T-DERMAL SCH (20:55)
[2017-05-25 06:09] VITALS: BP 121/78; PULSE 50; RESP 16; TEMP 97.5; O2SAT 98
[2017-05-25] MEDS: BENZTROPINE MESYLATE 1 MG TAB PO SCH ×2 (09:00→20:34)
[2017-05-25] MEDS: amLODIPine BESYLATE 5 MG TAB PO SCH (09:00)
[2017-05-25] MEDS: NICOTINE 21 MG/24 HR PATCH T-DERMAL SCH (09:00)
[2017-05-25] MEDS: DIVALPROEX SODIUM E.R. 500 MG TAB PO SCH ×2 (09:00→20:34)
--- NOTE | 2017-05-25 10:21 | PD.PSY.CON ---
Provisional Diagnosis Admission Date May 23, 2017 at 21:38 [place] I. 1. Schizophrenia, undifferentiated type, acute exacerbation 2. Cannabis abuse [place] II. Deferred History of Present Illness Service Psychiatry Consult Requested By Reason for Consult Second opinion Primary Care Physician Unknown HPI Mr. Escobar is a 42-year-old male with a history of schizophrenia and cannabis use issues, well known to the psychiatric service here from multiple prior inpatient psychiatric admissions. He was most recently hospitalized here under my care from 05/10- of this year. He returns under an ex parte order initiated by the patient's mother alleging that the patient has not been taking his medications and has been threatening to kill someone. Electronic medical record reviewed.Patient seen and examined with counselor and nurse. On my examination today, the patient presents as somewhat argumentative, intrusive and irritable. He is quite defensive and says "they say I wasn't taking my meds. I went to my Auntie's house. Someone stole my meds." However, he later says that his provider at [facility] told him he only needed to take his meds p.r.n.. He denies the allegations of threats of violence listed in the ex parte, saying "every time I come and talk to my mom" the two argue. Affect is dysphoric. He denies AVH but appears internally stimulated. He denies SI or HI but seems unreliable to contract for safety. Paranoia is present. His thought process is somewhat tangential, and he rambles at times about "monkeys or idiots." He says that he followed up with his outpatient provider at [facility]. He admits to ongoing cannabis use. Remainder of the psychiatric ROS is negative.I obtained patient's past psychiatric, family, chemical dependency and social history during my recent H&P under visit number [id number]. These data are materially unchanged today. The patient is a 42-year-old man, domiciled with his aunt, unemployed, on SSI, single, with psychiatric history of schizophrenia, is affective disorder, multiple psychiatric hospitalizations, last hospitalization here at [facility], he is well known by this service, no previous suicidal attempts , no significant medical history, hospitalized this time due to increased psychosis, paranoia and noncompliant with medications. Patient was consulted to me for second opinion. Psychotic evaluation patient is found in his room, he is calm, cooperative, but a little bit irritable, requesting to be discharged because his mother is lying to us. Patient says that he has been taking his medication as prescribed, he has not missed any of his meds. Patient says that his mother is a liar. However, patient seems to be paranoid, very circumstantial, talkative, at times irrational and disorganized. Patient is oriented 3, no attention deficit, no gross cognitive impairment present. Patient denies suicidal and homicidal ideation, he denies visual and auditory hallucinations. Patient has been compliant with medications in the unit, no agitation, no aggressive behavior. Review of Systems Constitutional: DENIES: Diaphoretic episodes, Fatigue, Fever, Weight gain, Weight loss, Chills, Dizziness, Change in appetite, Night Sweats Endocrine: DENIES: Heat/cold intolerance, Polydipsia, Polyuria, Polyphagia Ears, nose, mouth, throat: DENIES: Tinnitus, Hearing loss, Vertigo, Nasal discharge, Oral lesions, Throat pain, Hoarseness, Ear Pain, Running Nose, Epistaxis, Sinus Pain, Toothache, Odynophagia Cardiovascular: DENIES: Chest pain, Palpitations, Syncope, Dyspnea on Exertion , PND, Lower Extremity Edema, Orthopnea, Claudication Gastrointestinal: DENIES: Abdominal pain, Black stools, Bloody stools, Constipation, Diarrhea, Nausea, Vomiting, Difficulty Swallowing, Anorexia Musculoskeletal: DENIES: Joint pain, Muscle aches, Stiffness, Joint Swelling, Back pain, Neck pain Integumentary: DENIES: Abnormal pigmentation, Nail changes, Pruritus, Rash Hematologic/lymphatic: DENIES: Bruising, Lymphadenopathy Immunologic/allergic: DENIES: Eczema, Urticaria Neurologic: DENIES: Abnormal gait, Headache, Localized weakness, Paresthesias, Seizures, Speech Problems, Tremor, Poor Balance Psychiatric: COMPLAINS OF: Delusions, DENIES: Anxiety, Confusion, Mood changes , Depression, Hallucinations, Agitation, Suicidal Ideation, Homicidal Ideation Past Family Social History Coded Allergies: sodium hypochlorite solution (Unverified Allergy, Mild, 05/10/17) Active Scripts Olanzapine (Zyprexa) 20 Mg Tab, 20 MG PO HS for Mental Health for 5 Days, TAB 0 Refills Prov:Mt Bhat MD 05/18/17 Fluphenazine Decanoate Inj (Fluphenazine Decanoate Inj) 125 Mg/5 Ml Inj, 25 MG IM Q21D for Mental Health, #1 VIAL 0 Refills This dose of Prolixn Dec is due on 06/05/2017. Prov:Mt Bhat MD 05/15/17 [Benztropine] 1 MG TAB No Conflict Check, 1 MG PO Q12HR for Side effect management for 15 Days, 1 Refill Prov:Mt Bhat MD 05/15/17 Olanzapine Odt (Zyprexa Zydis) 20 Mg Tab, 20 MG PO HS for Mental Health for 15 Days, TAB 1 Refill Prov:Mt Bhat MD 05/15/17 Fluphenazine (Fluphenazine) 10 Mg Tab, 10 MG PO BID for Mental Health for 15 Days, TAB 1 Refill Take oral Prolixin until directed otherwise by outpatient provider. Be sure to get your next Prolixin Decanoate injection. Prov:Mt Bhat MD 05/15/17 Divalproex ER (Depakote ER) 500 Mg Parvin, 500 MG PO BID for Mental Health for 15 Days, TAB 1 Refill Prov:Mt Bhat MD 05/15/17 Amlodipine (Norvasc) 5 Mg Tab, 5 MG PO DAILY for Blood Pressure Management for 15 Days, TAB 1 Refill Prov:Mt Bhat MD 05/15/17 Discontinued Scripts Divalproex ER (Depakote ER) 500 Mg Parvin, 500 MG PO BID for Control Seizures for 5 Days, TAB 0 Refills Prov:Mt Bhat MD 05/18/17 Benztropine (Benztropine) 0.5 Mg Tab, 1 MG PO BID for Mental Health for 5 Days, TAB 0 Refills Prov:Mt Bhat MD 05/18/17 Fluphenazine (Fluphenazine) 10 Mg Tab, 10 MG PO BID for Mental Health, #5 TAB 00 Refills Prov:Mt Bhat MD 05/18/17 Current Medications Medications (Trade) Dose Ordered Sig/Cole Route Start Time Stop Time Status Last Admin (Norvasc) 5 mg DAILY PO 05/24/17 09:00 05/25/17 09:00 (Depakote Er) 500 mg BID PO 05/24/17 09:00 05/25/17 09:00 (Prolixin) 10 mg BID PO 05/24/17 09:00 05/25/17 09:00 (ZyPREXA ZYDIS ODT) 20 mg HS PO 05/24/17 21:00 05/24/17 20:54 (Ativan) 1 mg Q6H PRN PO 05/23/17 22:45 (Ativan Inj) 1 mg Q6H PRN IM 05/23/17 22:45 (Benadryl) 50 mg HS PRN PO 05/23/17 22:45 (Benadryl Inj) 50 mg HS PRN IM 05/23/17 22:45 (Tylenol) 650 mg Q4H PRN PO 05/23/17 22:45 (Milk Of Magnesia Liq) 30 ml DAILY PRN PO 05/23/17 22:45 (Mag-Al Plus Susp Liq) 30 ml Q6H PRN PO 05/23/17 22:45 (Habitrol 21 Mg Patch.24 Hr) 1 patch DAILY T-DERMAL 05/24/17 09:00 05/25/17 09:00 Miscellaneous Information 1 HS T-DERMAL 05/24/17 21:00 (Prolixin Decanoate Inj) 25 mg Q21D IM 06/05/17 09:00 (Cogentin) 1 mg BID PO 05/24/17 09:00 05/25/17 09:00 (Haldol) 5 mg Q6H PRN PO 05/24/17 11:00 (Haldol Inj) 5 mg Q6H PRN IM 05/24/17 11:00 Family History Patient denies family psychiatric history Social History Patient was born and raised in [place] [facility], he lives with his aunt, unemployed, on SSI, single, highest level of education is 11th grade Patient's Strengths (min. 2) Verbal communication Physical Exam Vital Signs Vital Signs Date Time Temp Pulse Resp B/P (MAP) Pulse Ox O2 Delivery O2 Flow Rate FiO2 05/25/17 06:09 97.5 50 16 121/78 (92) 98 Lab Results Test 05/24/17 11:45 Valproic Acid (Depakene) Level 35 MCG/ML Mental Status Examination Appearance man, in [facility], age appearing, he is calm, his cooperative a little bit irritable Speech: Rapid, Other (rambling at times) Orientation: Person, Place Memory: Impaired (describe) (confabulates) Thought Process: Tangential Thought Content: Paranoid Hallucination Type: Auditory (appears internally preoccupied) Attention and Concentration: Easily Distracted Suicidal Ideation: No Previous Suicide Attempts: No Homicidal Ideation: No Previous Homicide Attempts: No Insight: Poor Judgment: Poor Affect: Irritable Mood: Other (dysphoric) Motor Activity: Normal gait Assessment & Plan Problem List: (1) Schizophrenia ICD Codes: F20.9 - Schizophrenia, unspecified Status: Acute (2) Cannabis abuse ICD Codes: F12.10 - Cannabis abuse, uncomplicated Status: Chronic Assessment & Plan: I have seen and examined this patient, reviewed the documentation, I agree and concur with Dr. Bhat assessment and plan. Consult appreciated. Assessment & Plan Estimated LOS: days Request HC Surrog/Guard Advoc?: Yes Problem Qualifiers (1) Schizophrenia: Qualified Codes: F20.3 - Undifferentiated schizophrenia Matthwe Hinkle MD May 25, 2017 10:21
--- NOTE | 2017-05-25 11:29 | HHI.PYPN ---
Subjective Remarks Patient seen and examined with counselor. Chart reviewed. Case discussed with nursing staff. On my exam today, patient remains paranoid, particularly regarding mother. Insight into illness is poor. Denies SI/HI. Denies AVH but remains int stim. No side effects from medications. No physical complaints. Review of Systems ROS Limitations: Psychotic, Poor Historian Except as stated in HPI: all other systems reviewed are Neg Objective Alert: Yes [place]: Person, Place Mood: Anxious Affect: Restricted Memory Intact: Comment (not formally assessed) Hallucinations: Auditory (int stim) Delusions: Yes Delusion Type: Paranoid Suicidal: Ideation (Denies SI but seems unreliable to contract for safety.) Homicidal: Ideation (Denies HI but seems unreliable to contract for safety.) Insight/Judgment Poor Remarks No motor abnormalities noted. Thought process somewhat perseverative on discharge. Grooming and hygiene fair at best. Labs Test 05/24/17 11:45 Valproic Acid (Depakene) Level 35 MCG/ML Labs reviewed. Vitals/IOs Vital Signs Date Time Temp Pulse Resp B/P (MAP) Pulse Ox O2 Delivery O2 Flow Rate FiO2 05/25/17 06:09 97.5 50 16 121/78 (92) 98 Assessment & Plan Problem List: (1) Schizophrenia ICD Codes: F20.9 - Schizophrenia, unspecified Status: Acute (2) Cannabis abuse ICD Codes: F12.10 - Cannabis abuse, uncomplicated Status: Chronic Assessment & Plan Add midday dose of Prolixin 5mg for psychosis. Continue other psychotropics as ordered. Continue to monitor on the high acuity unit. Continue other medications and care as ordered. Justification for Cont. Inpt. Concern for impairment in safety particularly regarding ongoing paranoia about mother. Medication changes. Impairment in reality construction. High risk for decompensation in less restrictive environment. Discharge Planning Pending psychiatric stabilization. ?placement Request HC Surrog/Guard Advoc?: Yes Problem Qualifiers (1) Schizophrenia: Qualified Codes: F20.3 - Undifferentiated schizophrenia Mt Bhat MD May 25, 2017 11:29
[2017-05-25 17:41] VITALS: BP 120/76; PULSE 55; RESP 18; TEMP 98.3; O2SAT 100
[2017-05-25] MEDS: OLANZapine ODT 20 MG TAB PO SCH (20:34)
[2017-05-25] MEDS: REMOVE OLD NICOTINE PATCH T-DERMAL SCH (20:35)
[2017-05-26 06:12] VITALS: BP 115/72; PULSE 51; RESP 18; TEMP 97.2; O2SAT 98
[2017-05-26] MEDS: amLODIPine BESYLATE 5 MG TAB PO SCH (08:36)
[2017-05-26] MEDS: BENZTROPINE MESYLATE 1 MG TAB PO SCH ×2 (08:36→21:31)
[2017-05-26] MEDS: DIVALPROEX SODIUM E.R. 500 MG TAB PO SCH ×2 (08:36→21:33)
[2017-05-26] MEDS: NICOTINE 21 MG/24 HR PATCH T-DERMAL SCH (08:38)
--- NOTE | 2017-05-26 10:29 | HHI.PYPN ---
Subjective Remarks Patient seen and examined. Chart reviewed. Case discussed with nursing staff. On my exam, patient remains paranoid regarding mother. He is somewhat intrusive and discharge focused. He articulates bizarre beliefs, such as conjecturing that "my mental illness may be from the vagina that I licked. I ain't had no X-rays. A chemical imbalance." Denies AVH but remains internally preoccupied. Denies side effects from medications. No physical complaints. Review of Systems ROS Limitations: Psychotic, Poor Historian Except as stated in HPI: all other systems reviewed are Neg Objective Alert: Yes [place]: Person, Place Mood: Anxious Affect: Blunted Memory Intact: Comment (not formally assessed) Hallucinations: Auditory (remains internally preoccupied) Delusions: Yes Delusion Type: Paranoid, Other (bizarre) Suicidal: Ideation (no SI) Homicidal: Ideation (no HI) Insight/Judgment Poor Remarks No new motor abnormalities noted. Poor dentition. Labs Labs reviewed. Vitals/IOs Vital Signs Date Time Temp Pulse Resp B/P (MAP) Pulse Ox O2 Delivery O2 Flow Rate FiO2 05/26/17 06:12 97.2 51 18 115/72 (86) 98 Assessment & Plan Problem List: (1) Schizophrenia ICD Codes: F20.9 - Schizophrenia, unspecified Status: Acute (2) Cannabis abuse ICD Codes: F12.10 - Cannabis abuse, uncomplicated Status: Chronic Assessment & Plan Continue Prolixin as ordered. Continue Zyprexa as ordered. Patient requires additional monitored antipsychotic therapy before safe discharge can be arranged. Continue Depakote as ordered and plan to check an updated Depakote level after the weekend. Continue to monitor on the inpatient unit. Continue other medications and care as ordered. Justification for Cont. Inpt. High risk for decompensation in less restrictive environment. Impairment in reality construction. Discharge Planning Pending psychiatric stabilization Request HC Surrog/Guard Advoc?: Yes Problem Qualifiers (1) Schizophrenia: Qualified Codes: F20.3 - Undifferentiated schizophrenia Mt Bhat MD May 26, 2017 10:29
[2017-05-26 18:19] VITALS: BP 113/61; PULSE 55; RESP 17; TEMP 98.8; O2SAT 96
[2017-05-26] MEDS: REMOVE OLD NICOTINE PATCH T-DERMAL SCH (21:00)
[2017-05-26] MEDS: diphenhydrAMINE HCL 50 MG CAP - HS PRN PO (21:31)
[2017-05-26] MEDS: OLANZapine ODT 20 MG TAB PO SCH (21:32)
[2017-05-27] MEDS: LORazepam 1 MG TAB PO PRN (05:27)
[2017-05-27 06:00] VITALS: BP 99/66; PULSE 45; RESP 16; TEMP 97.5; O2SAT 97
[2017-05-27] MEDS: amLODIPine BESYLATE 5 MG TAB PO SCH (08:24)
[2017-05-27] MEDS: DIVALPROEX SODIUM E.R. 500 MG TAB PO SCH ×2 (08:25→20:50)
[2017-05-27] MEDS: BENZTROPINE MESYLATE 1 MG TAB PO SCH ×2 (08:25→20:49)
[2017-05-27] MEDS: NICOTINE 21 MG/24 HR PATCH T-DERMAL SCH (08:58)
--- NOTE | 2017-05-27 13:07 | HHI.PYPN ---
Subjective Remarks Patient seen and case discussed with nurse. Remains paranoid. Mostly focuses on medications. Cooperative with nursing staff. Review of Systems Except as stated in HPI: all other systems reviewed are Neg Objective Alert: Yes [place]: Person, Place Mood: Anxious Affect: Blunted Memory Intact: Comment (not formally assessed) Hallucinations: Auditory (remains internally preoccupied) Delusions: Yes Delusion Type: Paranoid, Other (bizarre) Suicidal: Ideation (no SI) Homicidal: Ideation (no HI) Insight/Judgment Impaired Vitals/IOs Vital Signs Date Time Temp Pulse Resp B/P (MAP) Pulse Ox O2 Delivery O2 Flow Rate FiO2 05/27/17 06:00 97.5 45 16 99/66 (94) 97 Assessment & Plan Problem List: (1) Schizophrenia ICD Codes: F20.9 - Schizophrenia, unspecified Status: Acute (2) Cannabis abuse ICD Codes: F12.10 - Cannabis abuse, uncomplicated Status: Chronic Assessment & Plan Estimated LOS: days continue current medication regimen. Evaluate efficacy versus tolerability. Justification for Cont. Inpt. Psychotic and unable to care for self. Request HC Surrog/Guard Advoc?: Yes Problem Qualifiers (1) Schizophrenia: Qualified Codes: F20.3 - Undifferentiated schizophrenia Scooby Love MD May 27, 2017 13:07
[2017-05-27 17:25] VITALS: BP 141/93; PULSE 56; RESP 17; TEMP 98.3; O2SAT 98
[2017-05-27] MEDS: OLANZapine ODT 20 MG TAB PO SCH (20:49)
[2017-05-27] MEDS: REMOVE OLD NICOTINE PATCH T-DERMAL SCH (20:50)
[2017-05-28 05:50] VITALS: BP 146/70; PULSE 47; RESP 18; TEMP 97.4; O2SAT 97
[2017-05-28] MEDS: BENZTROPINE MESYLATE 1 MG TAB PO SCH ×2 (08:08→21:00)
[2017-05-28] MEDS: NICOTINE 21 MG/24 HR PATCH T-DERMAL SCH (08:09)
[2017-05-28] MEDS: amLODIPine BESYLATE 5 MG TAB PO SCH (08:09)
[2017-05-28] MEDS: DIVALPROEX SODIUM E.R. 500 MG TAB PO SCH ×2 (08:09→21:00)
--- NOTE | 2017-05-28 13:59 | HHI.PYPN ---
Subjective Remarks Patient seen and examined. Chart reviewed. Case discussed with nursing staff. No behavioral issues overnight. Patient reportedly remains somewhat paranoid regarding medications. On my examination today, patient is calm and pleasant. No physical complaints. No SI or HI. No side effects from medications. Review of Systems ROS Limitations: Poor Historian Except as stated in HPI: all other systems reviewed are Neg Objective Alert: Yes [place]: Person, Place Mood: Calm Affect: Euthymic Memory Intact: Comment (not formally assessed) Hallucinations: Other (no AVH) Delusions: Yes Delusion Type: Paranoid (perhaps lessening somewhat) Suicidal: Ideation (no SI) Homicidal: Ideation (no HI) Insight/Judgment Poor Remarks No motor abnormalities noted Labs Labs reviewed. Vitals/IOs Vital Signs Date Time Temp Pulse Resp B/P (MAP) Pulse Ox O2 Delivery O2 Flow Rate FiO2 05/28/17 05:50 97.4 47 18 146/70 (95) 97 Assessment & Plan Problem List: (1) Schizophrenia ICD Codes: F20.9 - Schizophrenia, unspecified Status: Acute (2) Cannabis abuse ICD Codes: F12.10 - Cannabis abuse, uncomplicated Status: Chronic Assessment & Plan Continue current psychotropics as ordered. Check a Depakote level in the morning. Continue to monitor on the inpatient unit. Continue other medications and care as ordered. Justification for Cont. Inpt. Risk for decompensation and less restrictive environment. Discharge Planning Pending stabilization Request HC Surrog/Guard Advoc?: Yes Problem Qualifiers (1) Schizophrenia: Qualified Codes: F20.3 - Undifferentiated schizophrenia Mt Bhat MD May 28, 2017 13:59
[2017-05-28 17:46] VITALS: BP 133/85; PULSE 56; RESP 16; TEMP 98; O2SAT 100
[2017-05-28] MEDS: REMOVE OLD NICOTINE PATCH T-DERMAL SCH (21:00)
[2017-05-28] MEDS: diphenhydrAMINE HCL 50 MG CAP - HS PRN PO (21:00)
[2017-05-28] MEDS: OLANZapine ODT 20 MG TAB PO SCH (21:00)
[2017-05-28] MEDS: LORazepam 1 MG TAB PO PRN (21:00)
[2017-05-29 05:56] VITALS: BP 114/66; PULSE 52; RESP 18; TEMP 97.8; O2SAT 98
[2017-05-29] MEDS: BENZTROPINE MESYLATE 1 MG TAB PO SCH ×2 (07:55→20:55)
[2017-05-29] MEDS: DIVALPROEX SODIUM E.R. 500 MG TAB PO SCH ×2 (07:55→20:55)
[2017-05-29] MEDS: amLODIPine BESYLATE 5 MG TAB PO SCH (07:58)
[2017-05-29] MEDS: NICOTINE 21 MG/24 HR PATCH T-DERMAL SCH (07:59)
[2017-05-29 17:27] VITALS: BP 124/76; PULSE 55; RESP 17; TEMP 98.4; O2SAT 100
[2017-05-29] MEDS: LORazepam 1 MG TAB PO PRN (20:56)
[2017-05-29] MEDS: OLANZapine ODT 20 MG TAB PO SCH (20:56)
[2017-05-29] MEDS: diphenhydrAMINE HCL 50 MG CAP - HS PRN PO (20:56)
[2017-05-29] MEDS: REMOVE OLD NICOTINE PATCH T-DERMAL SCH (21:00)
[2017-05-30 06:02] VITALS: BP 97/52; PULSE 52; RESP 18; TEMP 98.1; O2SAT 97
[2017-05-30] MEDS: amLODIPine BESYLATE 5 MG TAB PO SCH (08:57)
[2017-05-30] MEDS: NICOTINE 21 MG/24 HR PATCH T-DERMAL SCH (08:57)
[2017-05-30] MEDS: DIVALPROEX SODIUM E.R. 500 MG TAB PO SCH ×2 (08:57→20:35)
[2017-05-30] MEDS: BENZTROPINE MESYLATE 1 MG TAB PO SCH ×2 (08:57→20:34)
--- NOTE | 2017-05-30 10:46 | HHI.PYPN ---
Subjective Remarks Patient seen and examined with nurse. Chart reviewed. Dr. Hinkle was covering 2700 unit yesterday where patient is located, but I see no note from him yet. Case discussed in treatment team. On my examination today, patient remains somewhat paranoid regarding his mother and regarding the staff. Somewhat irritable. Continues to insist that he was medication compliant prior to admission, but his report of this is inconsistent, and at one point he says that his medications were in fact stolen or went missing. Insight into mental illness generally is quite poor, and the patient says "I am fully healthy" with regard to his mental health. Says that he doesn't want to go into an assisted living because "I'm not like that." Denies side effects from medications. No physical complaints. Review of Systems ROS Limitations: Poor Historian Except as stated in HPI: all other systems reviewed are Neg Objective Alert: Yes [place]: Person, Place Mood: Calm Affect: Other (irritable) Memory Intact: Comment (not formally assessed) Hallucinations: Other (no AVH) Delusions: Yes Delusion Type: Paranoid (ongoing) Suicidal: Ideation (no SI) Homicidal: Ideation (no HI) Insight/Judgment Poor Remarks No motor abnormalities noted. Thought process somewhat perseverative. Grooming and hygiene fair at best. Labs Test 05/29/17 13:07 Valproic Acid (Depakene) Level 68 MCG/ML Labs reviewed. Depakote level within the therapeutic range. Vitals/IOs Vital Signs Date Time Temp Pulse Resp B/P (MAP) Pulse Ox O2 Delivery O2 Flow Rate FiO2 05/30/17 06:02 98.1 52 18 97/52 (67) 97 Assessment & Plan Problem List: (1) Schizophrenia ICD Codes: F20.9 - Schizophrenia, unspecified Status: Acute (2) Cannabis abuse ICD Codes: F12.10 - Cannabis abuse, uncomplicated Status: Chronic Assessment & Plan Titrate midday dose of Prolixin to 7.5 mg to target paranoia. Continue other psychotropics as ordered. Continue to monitor on the high acuity unit. Continue other medications and care as ordered. Justification for Cont. Inpt. Impairment in reality construction. High risk for decompensation in less restrictive environment. Discharge Planning Pending stabilization. Request HC Surrog/Guard Advoc?: Yes Problem Qualifiers (1) Schizophrenia: Qualified Codes: F20.3 - Undifferentiated schizophrenia [facility] MD May 30, 2017 10:45
[2017-05-30] MEDS ORDERED: PILL SPLITTER OTHER PRN (14:30)
[2017-05-30 17:55] VITALS: BP 129/79; PULSE 63; RESP 18; TEMP 98.4; O2SAT 97
[2017-05-30] MEDS: OLANZapine ODT 20 MG TAB PO SCH (20:34)
[2017-05-30] MEDS: REMOVE OLD NICOTINE PATCH T-DERMAL SCH (20:35)
[2017-05-30] MEDS: diphenhydrAMINE HCL 50 MG CAP - HS PRN PO (21:42)
[2017-05-30] MEDS: LORazepam 1 MG TAB PO PRN (21:42)
[2017-05-31 06:09] VITALS: BP 136/90; PULSE 56; RESP 16; TEMP 97.3; O2SAT 100
[2017-05-31] MEDS: BENZTROPINE MESYLATE 1 MG TAB PO SCH ×2 (08:58→20:39)
[2017-05-31] MEDS: NICOTINE 21 MG/24 HR PATCH T-DERMAL SCH (08:59)
[2017-05-31] MEDS: amLODIPine BESYLATE 5 MG TAB PO SCH (08:59)
[2017-05-31] MEDS: DIVALPROEX SODIUM E.R. 500 MG TAB PO SCH ×2 (08:59→20:39)
--- NOTE | 2017-05-31 10:15 | HHI.PYPN ---
Subjective Remarks Patient seen and examined with counselor and nurse. Chart reviewed. Case discussed with nursing staff. On my exam, patient continues to minimize his contribution to his re-hospitalization. Blames others, particularly his mother , for causing him to be re-admitted. Remains paranoid regarding mother as before. When asked about AVH, says in noncommittal fashion, "not really." Denies side effects from medications. No physical complaints. Review of Systems ROS Limitations: Psychotic, Poor Historian Except as stated in HPI: all other systems reviewed are Neg Objective Alert: Yes [place]: Person, Place Mood: Other (Easily irritated) Affect: Restricted Memory Intact: Comment (not formally assessed) Hallucinations: Other (Noncommittal re: AVH) Delusions: Yes Delusion Type: Paranoid Suicidal: Ideation (no SI) Homicidal: Ideation (no HI) Insight/Judgment Poor Remarks No motor abnormalities noted Labs labs reviewed Vitals/IOs Vital Signs Date Time Temp Pulse Resp B/P (MAP) Pulse Ox O2 Delivery O2 Flow Rate FiO2 05/31/17 06:09 97.3 56 16 136/90 (105) 100 Assessment & Plan Problem List: (1) Schizophrenia ICD Codes: F20.9 - Schizophrenia, unspecified Status: Acute (2) Cannabis abuse ICD Codes: F12.10 - Cannabis abuse, uncomplicated Status: Chronic Assessment & Plan Titrate Prolixin to 10mg TID. Plan to titrate dose of Prolixin Dec to 37.5mg when he is next due on 06/05. Continue Depakote and Zyprexa as ordered. Continue to monitor on the high acuity unit. Continue other medications and care as ordered. Justification for Cont. Inpt. Impairment in reality construction. Medication changes in process. High risk for decompensation in less restrictive environment. Discharge Planning Pending stabilization. Likely would benefit from [facility] placement; d/w counselor. Request HC Surrog/Guard Advoc?: Yes Problem Qualifiers (1) Schizophrenia: Qualified Codes: F20.3 - Undifferentiated schizophrenia Mt Bhat MD May 31, 2017 10:15
[2017-05-31 17:32] VITALS: BP 139/79; PULSE 61; RESP 18; TEMP 98.4; O2SAT 100
[2017-05-31] MEDS: OLANZapine ODT 20 MG TAB PO SCH (20:40)
[2017-06-01 06:09] VITALS: BP 113/76; PULSE 53; RESP 16; TEMP 97.4; O2SAT 99
[2017-06-01] MEDS: DIVALPROEX SODIUM E.R. 500 MG TAB PO SCH ×2 (08:00→20:54)
[2017-06-01] MEDS: amLODIPine BESYLATE 5 MG TAB PO SCH (08:00)
[2017-06-01] MEDS: BENZTROPINE MESYLATE 1 MG TAB PO SCH ×2 (08:00→20:54)
--- NOTE | 2017-06-01 09:24 | HHI.PYPN ---
Subjective Remarks Patient seen and examined with counselor and nurse. Chart reviewed. Case discussed with nursing staff. On my exam, insight into mental illness remains poor. A little less paranoid regarding mother but continues to insist that she is "telling stories." Less resistant to [facility] placement. Denies side effects from medications. No physical complaints. Review of Systems ROS Limitations: Poor Historian Except as stated in HPI: all other systems reviewed are Neg Objective Alert: Yes [place]: Person, Place Mood: Calm Affect: Blunted Memory Intact: Comment (not formally assessed) Hallucinations: Other (no AVH) Delusions: Yes Delusion Type: Paranoid (perhaps lessening) Suicidal: Ideation (no SI) Homicidal: Ideation (no HI) Insight/Judgment Poor Remarks No motor abnormalities noted Labs Labs reviewed Vitals/IOs Vital Signs Date Time Temp Pulse Resp B/P (MAP) Pulse Ox O2 Delivery O2 Flow Rate FiO2 06/01/17 06:09 97.4 53 16 113/76 (88) 99 Assessment & Plan Problem List: (1) Schizophrenia ICD Codes: F20.9 - Schizophrenia, unspecified Status: Acute (2) Cannabis abuse ICD Codes: F12.10 - Cannabis abuse, uncomplicated Status: Chronic Assessment & Plan Continue current psychotropics as ordered. Continue to monitor on the inpatient unit. Continue other medications and care as ordered. Justification for Cont. Inpt. Risk for decompensation and less restrictive environment. Discharge Planning Patient would likely benefit from placement in a structured living environment. Request HC Surrog/Guard Advoc?: Yes Problem Qualifiers (1) Schizophrenia: Qualified Codes: F20.3 - Undifferentiated schizophrenia Mt Bhat MD Jun 01, 2017 09:24
--- NOTE | 2017-06-01 11:52 | HHI.PYPN ---
Subjective Remarks Late entry of the reevaluation done May 29/2017 On psychiatric evaluation today patient is found pacing in the [facility] in [facility] units, calm, cooperative, reports feeling better, requesting to be discharged, blaming his mother for hospitalization. Denies suicidal and homicidal ideation , denies visual and auditory hallucinations. As per discussion with nurse in charge, no agitation or aggressive behavior reported. Patient has been compliant with medications, no significant side effects. Review of Systems Other No somatic complaints at this moment Objective Alert: Yes [place]: Person, Place Mood: Other (Easily irritated) Affect: Restricted Memory Intact: Comment (not formally assessed) Hallucinations: Other (Noncommittal re: AVH) Delusions: Yes Delusion Type: Paranoid Suicidal: Ideation (no SI) Homicidal: Ideation (no HI) Insight/Judgment Poor Vitals/IOs Vital Signs Date Time Temp Pulse Resp B/P (MAP) Pulse Ox O2 Delivery O2 Flow Rate FiO2 06/01/17 06:09 97.4 53 16 113/76 (88) 99 Assessment & Plan Problem List: (1) Schizophrenia ICD Codes: F20.9 - Schizophrenia, unspecified Status: Acute Assessment & Plan: Will continue current psychotropic regimen, psychoeducation provided. (2) Cannabis abuse ICD Codes: F12.10 - Cannabis abuse, uncomplicated Status: Chronic Assessment & Plan Estimated LOS: days Justification for Cont. Inpt. Patient has an elevated risk to decompensate at a lower level of care. Request HC Surrog/Guard Advoc?: Yes Problem Qualifiers (1) Schizophrenia: Qualified Codes: F20.3 - Undifferentiated schizophrenia Matthew Hinkle MD Jun 01, 2017 11:52
[2017-06-01 18:24] VITALS: BP 152/98; PULSE 60; RESP 18; TEMP 98.5; O2SAT 100
[2017-06-01] MEDS: OLANZapine ODT 20 MG TAB PO SCH (20:55)
[2017-06-01] MEDS: diphenhydrAMINE HCL 50 MG CAP - HS PRN PO (21:27)
[2017-06-02 05:30] VITALS: BP 110/74; PULSE 56; RESP 16; TEMP 97.4; O2SAT 100
[2017-06-02] MEDS: BENZTROPINE MESYLATE 1 MG TAB PO SCH ×2 (08:00→20:23)
[2017-06-02] MEDS: DIVALPROEX SODIUM E.R. 500 MG TAB PO SCH ×2 (08:00→20:23)
[2017-06-02] MEDS: amLODIPine BESYLATE 5 MG TAB PO SCH (08:00)
--- NOTE | 2017-06-02 09:41 | HHI.PYPN ---
Subjective Remarks Patient seen and examined with counselor and nurse. Chart reviewed. Case discussed with nursing staff. On my exam today, patient continues to display poor insight into mental illness and need for admission. He wants to talk about his legal status, and I explain the [place] and involuntary status to him. He seems to comprehend this information but later calls 911 from the unit phone to report that he is being held involuntarily. Remains somewhat paranoid. No side effects from medications. Mild headache but no other physical complaints. Remains resistant to [facility] placement. Review of Systems ROS Limitations: Psychotic, Poor Historian Except as stated in HPI: all other systems reviewed are Neg Objective Alert: Yes [place]: Person, Place Mood: Oppositional Affect: Blunted Memory Intact: Comment (not formally assessed) Hallucinations: Other (No hallucinations) Delusions: Yes Delusion Type: Paranoid Suicidal: Ideation (no SI) Homicidal: Ideation (no HI) Insight/Judgment Quite poor Remarks No motor abnormalities noted. Labs Labs reviewed. Vitals/IOs Vital Signs Date Time Temp Pulse Resp B/P (MAP) Pulse Ox O2 Delivery O2 Flow Rate FiO2 06/02/17 05:30 97.4 56 16 110/74 (86) 100 Assessment & Plan Problem List: (1) Schizophrenia ICD Codes: F20.9 - Schizophrenia, unspecified Status: Acute (2) Cannabis abuse ICD Codes: F12.10 - Cannabis abuse, uncomplicated Status: Chronic Assessment & Plan Add a small daytime dose of Zyprexa to target ongoing paranoia. Continue other psychotropics as ordered. 24-hour outgoing phone restriction. Continue to monitor on the high acuity unit. Continue other medications and care as ordered. Justification for Cont. Inpt. Impairment in reality construction. Med changes. Risk for decompensation in less restrictive environment. Discharge Planning Patient would likely benefit from placement. He remains resistant to the idea and in any event has no funds to support placement until after the first of next month. To be determined pending outcome of [address] next Monday. Request HC Surrog/Guard Advoc?: Yes Problem Qualifiers (1) Schizophrenia: Qualified Codes: F20.3 - Undifferentiated schizophrenia Mt Bhat MD Jun 02, 2017 09:41
[2017-06-02 16:15] VITALS: BP 133/83; PULSE 66; RESP 18; TEMP 98.7; O2SAT 96
[2017-06-02] MEDS: OLANZapine ODT 20 MG TAB PO SCH (20:23)
[2017-06-03 05:40] VITALS: BP 143/93; PULSE 62; RESP 18; TEMP 97.3; O2SAT 98
[2017-06-03] MEDS: amLODIPine BESYLATE 5 MG TAB PO SCH (08:59)
[2017-06-03] MEDS: DIVALPROEX SODIUM E.R. 500 MG TAB PO SCH ×2 (08:59→20:42)
[2017-06-03] MEDS: BENZTROPINE MESYLATE 1 MG TAB PO SCH ×2 (08:59→20:41)
[2017-06-03] MEDS: OLANZapine 2.5 MG TAB PO SCH (08:59)
[2017-06-03 17:55] VITALS: BP 145/95; PULSE 77; RESP 18; TEMP 98.1; O2SAT 99
--- NOTE | 2017-06-03 19:27 | HHI.PYPN ---
Subjective Remarks Patient was seen and case discussed with nursing. Patient is hyperverbal, pressured and perseverative that he did not have homicidal ideation towards his mom. Thought process is circumstantial. He is upset that he is involuntary and does not think he has a mental health diagnosis. He does believe he has the ability to read other people's thoughts. Compliant with medications and behaving well on the unit Objective Alert: Yes [place]: Person, Place Mood: Oppositional Affect: Restricted Memory Intact: Comment (not formally assessed) Hallucinations: Other (No hallucinations) Delusions: Yes Delusion Type: Other (read other people's thoughts) Suicidal: Ideation (no SI) Homicidal: Ideation (no HI) Insight/Judgment Poor Vitals/IOs Vital Signs Date Time Temp Pulse Resp B/P (MAP) Pulse Ox O2 Delivery O2 Flow Rate FiO2 06/03/17 17:55 98.1 77 18 145/95 (112) 99 Assessment & Plan Problem List: (1) Schizophrenia ICD Codes: F20.9 - Schizophrenia, unspecified Status: Acute (2) Cannabis abuse ICD Codes: F12.10 - Cannabis abuse, uncomplicated Status: Chronic Assessment & Plan Continue current treatment plan Justification for Cont. Inpt. Patient would decompensate in a less restrictive setting Request HC Surrog/Guard Advoc?: Yes Problem Qualifiers (1) Schizophrenia: Qualified Codes: F20.3 - Undifferentiated schizophrenia Elkin Christopher DO Jun 03, 2017 19:27
[2017-06-03] MEDS: diphenhydrAMINE HCL 50 MG CAP - HS PRN PO (20:41)
[2017-06-03] MEDS: OLANZapine ODT 20 MG TAB PO SCH (20:41)
[2017-06-04 05:33] VITALS: BP 139/92; PULSE 60; RESP 16; TEMP 96.7; O2SAT 99
[2017-06-04] MEDS: DIVALPROEX SODIUM E.R. 500 MG TAB PO SCH ×2 (10:38→20:22)
[2017-06-04] MEDS: BENZTROPINE MESYLATE 1 MG TAB PO SCH ×2 (10:38→20:22)
[2017-06-04] MEDS: amLODIPine BESYLATE 5 MG TAB PO SCH (10:38)
[2017-06-04] MEDS: OLANZapine 2.5 MG TAB PO SCH (10:38)
[2017-06-04 17:09] VITALS: BP 130/80; PULSE 98; RESP 18; TEMP 98.6; O2SAT 98
--- NOTE | 2017-06-04 18:36 | HHI.PYPN ---
Subjective Remarks Patient was seen and case discussed with nursing. Patient is less perseverative compared to yesterday. Less hyperverbal less internally stimulated. Continues to be focused on discharge. Continues to be argumentative with his diagnosis has poor insight as confirmed yesterday. Remains disheveled with poor hygiene. Seclusive to self Objective Alert: Yes [place]: Person, Place Mood: Oppositional Affect: Blunted Memory Intact: Comment (not formally assessed) Hallucinations: Other (No hallucinations) Delusions: Yes Delusion Type: Other (read other people's thoughts) Suicidal: Ideation (no SI) Homicidal: Ideation (no HI) Insight/Judgment Poor Vitals/IOs Vital Signs Date Time Temp Pulse Resp B/P (MAP) Pulse Ox O2 Delivery O2 Flow Rate FiO2 06/04/17 17:09 98.6 98 18 130/80 (97) 98 Assessment & Plan Problem List: (1) Schizophrenia ICD Codes: F20.9 - Schizophrenia, unspecified Status: Acute (2) Cannabis abuse ICD Codes: F12.10 - Cannabis abuse, uncomplicated Status: Chronic Assessment & Plan Continue current treatment plan Justification for Cont. Inpt. Patient will decompensate in a less restrictive setting Request HC Surrog/Guard Advoc?: Yes Problem Qualifiers (1) Schizophrenia: Qualified Codes: F20.3 - Undifferentiated schizophrenia Elkin Christopher DO Jun 04, 2017 18:36
[2017-06-04] MEDS: OLANZapine ODT 20 MG TAB PO SCH (20:23)
[2017-06-04] MEDS: diphenhydrAMINE HCL 50 MG CAP - HS PRN PO (20:23)
[2017-06-05 06:05] VITALS: BP 132/92; PULSE 55; RESP 18; TEMP 97.6; O2SAT 98
--- NOTE | 2017-06-05 08:38 | HHI.PYPN ---
Subjective Remarks Patient seen and examined. Chart reviewed. Case discussed with nursing staff. I note that patient told Dr. Christopher that he thought that he could read other people's thoughts. When I ask the patient about this today he says that he perceives "a lot of voices. People saying things to me. Lizett Major. I didn't want to put her in danger." Mood is upbeat today. Patient is more receptive to [facility] placement. No SI/HI. No physical complaints. No side effects from medications. Review of Systems ROS Limitations: Psychotic, Poor Historian Except as stated in HPI: all other systems reviewed are Neg Objective Alert: Yes [place]: Person, Place Mood: Calm Affect: Euthymic Memory Intact: Comment (not formally assessed) Hallucinations: Auditory (Possible, as part of reading others thoughts, speaks of "voices") Delusions: Yes Delusion Type: Other (read other people's thoughts, ongoing) Suicidal: Ideation (no SI) Homicidal: Ideation (no HI) Insight/Judgment Poor Remarks No motor abnormalities noted. Thought process somewhat circumstantial. Grooming and hygiene fair. Labs Labs reviewed. Vitals/IOs Vital Signs Date Time Temp Pulse Resp B/P (MAP) Pulse Ox O2 Delivery O2 Flow Rate FiO2 06/05/17 06:05 97.6 55 18 132/92 (105) 98 Assessment & Plan Problem List: (1) Schizophrenia ICD Codes: F20.9 - Schizophrenia, unspecified Status: Acute (2) Cannabis abuse ICD Codes: F12.10 - Cannabis abuse, uncomplicated Status: Chronic Assessment & Plan Patient due for increase dose of Prolixin Decanoate today. To consider therefore tapering oral Prolixin dose, although the patient remains somewhat symptomatic. We could consider tapering oral Prolixin while simultaneously titrating Zyprexa, but I will wait at least overnight to ensure good tolerability of Prolixin Decanoate dose. Continue to monitor on the high acuity unit. Continue other medications and care as ordered. Justification for Cont. Inpt. Impairment in reality construction. Anticipated med changes. High risk for decompensation in less restrictive environment. Discharge Planning Possible placement. Request HC Surrog/Guard Advoc?: Yes Problem Qualifiers (1) Schizophrenia: Qualified Codes: F20.3 - Undifferentiated schizophrenia Mt Bhat MD Jun 05, 2017 08:38
[2017-06-05] MEDS: OLANZapine 2.5 MG TAB PO SCH (09:13)
[2017-06-05] MEDS: DIVALPROEX SODIUM E.R. 500 MG TAB PO SCH ×2 (09:13→21:00)
[2017-06-05] MEDS: amLODIPine BESYLATE 5 MG TAB PO SCH (09:13)
[2017-06-05] MEDS: BENZTROPINE MESYLATE 1 MG TAB PO SCH ×2 (09:13→21:00)
[2017-06-05] MEDS: OLANZapine ODT 20 MG TAB PO SCH (21:00)
[2017-06-05] MEDS: LORazepam 1 MG TAB PO PRN (21:00)
[2017-06-05] MEDS: diphenhydrAMINE HCL 50 MG CAP - HS PRN PO (21:00)
[2017-06-06] MEDS: BENZTROPINE MESYLATE 1 MG TAB PO SCH ×2 (09:00→21:00)
[2017-06-06] MEDS: OLANZapine 2.5 MG TAB PO SCH (09:02)
[2017-06-06] MEDS: DIVALPROEX SODIUM E.R. 500 MG TAB PO SCH ×2 (09:02→21:00)
[2017-06-06] MEDS: amLODIPine BESYLATE 5 MG TAB PO SCH (09:02)
--- NOTE | 2017-06-06 11:20 | PD.TTN ---
Patient Problems 1. Discharge planning 2. Medication compliance 3. Knowledge deficit 4. Lack of coping skills Progress Toward Goals Provider Present: Dr. Yvon hBat Provider Input: Pt has recently received his 3rd Prolixin Dec. shot and will likely have an adjustment to his oral Prolixin and Zyprexa. Nurse(s) Present: Petar Lee RN Nurse(s) Input: Pt appears with no aggression/outbursts, improving insight, social on unit, medication compliant, somewhat suspicious at times and no behavioral management problem. Psychiatric Counselors Present: LIBIA Alejandre Psych Therapist Input: Pt appears calmer, more capable of utilizing coping skills to regulate emotions, appropriate, organized, oriented and with limited insight into condition. Pt appears to blame others for his admission but has started to voice thoughts of his role in his admission. No noted agitation or aggression. Group Spec/RT/OT/BERMEO Present: JEAN-CLAUDE Rankin Group Spec/RT/OT/BERMEO Input: Pt very rarely attends structured groups. Pt will participate in card games with recreational therapist. Discharge Plan SMA, Other Pt will be linked with an [facility] as it is believed that he will require this structured setting due to history of noncompliance and poor behavior at home. He cannot return to mother's home at this time. Documentation Scribe: LIBIA Alejandre Jonathan LMHC Jun 06, 2017 11:20
--- NOTE | 2017-06-06 12:35 | HHI.PYPN ---
Subjective Remarks patient seen and examined with nurse. Chart reviewed. Case discussed in treatment team. On my examination today, the patient is in good spirits. No ongoing psychotic symptoms noted. No SI or HI. Insight into mental illness remains poor. No side effects from medications. No physical complaints. Review of Systems ROS Limitations: Poor Historian Except as stated in HPI: all other systems reviewed are Neg Objective Alert: Yes [place]: Person, Place Mood: Calm Affect: Euthymic Memory Intact: Comment (not assessed) Hallucinations: Other (no AVH) Delusions: No Delusion Type: Other (no delusions elicited today) Suicidal: Ideation (no SI) Homicidal: Ideation (no HI) Insight/Judgment Poor Remarks No motor abnormalities noted Labs Labs reviewed. No new labs. Vitals/IOs Vital Signs Date Time Temp Pulse Resp B/P (MAP) Pulse Ox O2 Delivery O2 Flow Rate FiO2 06/05/17 06:05 97.6 55 18 132/92 (105) 98 Assessment & Plan Problem List: (1) Schizophrenia ICD Codes: F20.9 - Schizophrenia, unspecified Status: Acute (2) Cannabis abuse ICD Codes: F12.10 - Cannabis abuse, uncomplicated Status: Chronic Assessment & Plan Taper oral Prolixin to 7.5 mg 3 times daily with plans to continue slow taper so long as psychotic symptoms do not recur. Patient received a booster dose of Prolixin Decanoate yesterday. Continue Zyprexa as ordered. Continue to monitor on an inpatient unit. Continue other medications and care as ordered. Justification for Cont. Inpt. High risk for decompensation and less restrictive environment. Discharge Planning Pending outcome a [address].? Placement Request HC Surrog/Guard Advoc?: Yes Problem Qualifiers (1) Schizophrenia: Qualified Codes: F20.3 - Undifferentiated schizophrenia Mt Bhat MD Jun 06, 2017 12:35
[2017-06-06 17:46] VITALS: BP 133/88; PULSE 89; RESP 18; TEMP 97.8; O2SAT 100
[2017-06-06] MEDS: OLANZapine ODT 20 MG TAB PO SCH (21:00)
[2017-06-06] MEDS: diphenhydrAMINE HCL 50 MG CAP - HS PRN PO (21:35)
[2017-06-07] MEDS: OLANZapine 2.5 MG TAB PO SCH (09:00)
[2017-06-07] MEDS: amLODIPine BESYLATE 5 MG TAB PO SCH (09:00)
[2017-06-07] MEDS: BENZTROPINE MESYLATE 1 MG TAB PO SCH ×2 (09:00→20:29)
[2017-06-07] MEDS: DIVALPROEX SODIUM E.R. 500 MG TAB PO SCH ×2 (09:01→20:29)
--- NOTE | 2017-06-07 11:14 | HHI.PYPN ---
Subjective Remarks Patient seen and examined. Chart reviewed. Case discussed with nursing staff. No behavioral issues overnight. On my examination today, the patient is in good spirits. Thought processes fairly linear. No AVH or other psychotic symptoms reported. No side effects from medications. No physical complaints. Review of Systems Except as stated in HPI: all other systems reviewed are Neg Objective Alert: Yes [place]: Person, Place Mood: Calm Affect: Appropriate Memory Intact: Comment (not assessed) Hallucinations: Other (no AVH) Delusions: No Delusion Type: Other (no delusions) Suicidal: Ideation (no SI) Homicidal: Ideation (no HI) Insight/Judgment Poor Remarks No motor abnormalities noted. Labs Labs reviewed. Vitals/IOs Vital Signs Date Time Temp Pulse Resp B/P (MAP) Pulse Ox O2 Delivery O2 Flow Rate FiO2 06/06/17 17:46 97.8 89 18 133/88 (103) 100 Assessment & Plan Problem List: (1) Schizophrenia ICD Codes: F20.9 - Schizophrenia, unspecified Status: Acute (2) Cannabis abuse ICD Codes: F12.10 - Cannabis abuse, uncomplicated Status: Chronic Assessment & Plan Continue with reduced dose of oral Prolixin; no evidence of psychotic decompensation with tapering of dose so far. Continue Zyprexa as ordered. Continue other psychotropics as ordered. Obtain an updated set of basic laboratories in the morning. Continue to monitor on the inpatient unit. Case presented to the [place] [address] [place] and placed in continuance for 4 weeks by the meat grader with mother as health care surrogate. Outpatient commitment also discussed to complement placement to lessen risk of relapse. Justification for Cont. Inpt. High risk for decompensation in less restricted environment. Discharge Planning Placement. Possible involuntary outpatient commitment. Request HC Surrog/Guard Advoc?: Yes Problem Qualifiers (1) Schizophrenia: Qualified Codes: F20.3 - Undifferentiated schizophrenia Mt Bhat MD Jun 07, 2017 11:13
[2017-06-07 18:47] VITALS: BP 152/93; PULSE 99; RESP 18; TEMP 98.7; O2SAT 99
[2017-06-07] MEDS: OLANZapine ODT 20 MG TAB PO SCH (20:29)
[2017-06-08 05:59] VITALS: BP 108/70; PULSE 54; RESP 16; TEMP 97.9
[2017-06-08 08:34] LABS: AUTOMATED NEUTROPHIL # 2.9 TH/MM3 (1.8-7.7); BASOPHIL % 0.7 % (0.0-2.0); EOSINOPHIL # 0.3 TH/MM3 (0-0.4); EOSINOPHIL % 5.6 % (0.0-4.0); HEMATOCRIT 38.8 % (39.0-51.0); HEMO FLAGS DIFF FINAL; LYMPH % 30.2 % (9.0-44.0); LYMPHOCYTE # 1.8 TH/MM3 (1.0-4.8); MEAN CELL VOLUME 74.9 FL (80.0-100.0); MEAN CORPUSCULAR HGB CONC 32.1 % (32.0-36.0); NEUT % 49.5 % (16.0-70.0); PLATELET COUNT 182 TH/MM3 (150-450); RED BLOOD COUNT 5.18 MIL/MM3 (4.50-5.90); RED CELL DISTRIBUTION WIDTH 14.9 % (11.6-17.2); WHITE BLOOD COUNT 5.9 TH/MM3 (4.0-11.0)
[2017-06-08] MEDS: BENZTROPINE MESYLATE 1 MG TAB PO SCH ×2 (08:36→20:54)
[2017-06-08] MEDS: DIVALPROEX SODIUM E.R. 500 MG TAB PO SCH ×2 (08:36→20:54)
[2017-06-08] MEDS: OLANZapine 2.5 MG TAB PO SCH (08:37)
[2017-06-08] MEDS: amLODIPine BESYLATE 5 MG TAB PO SCH (08:37)
[2017-06-08 09:02] LABS: ALT (GPT) 15 U/L (12-78); AST (GOT) 8 U/L (15-37); BICARBONATE 31.1 MEQ/L (21.0-32.0); BLOOD UREA NITROGEN 11 MG/DL (7-18); GLOMERULAR FILTRATION RATE 115 ML/MIN (>89)
[2017-06-08 09:08] LABS: ALKALINE PHOSPHATASE 41 U/L (45-117); ANION GAP 4 MEQ/L (5-15); CHLORIDE 104 MEQ/L (98-107); POTASSIUM 4.4 MEQ/L (3.5-5.1); SODIUM (NA) 139 MEQ/L (136-145); TOTAL BILIRUBIN ADULT 0.2 MG/DL (0.2-1.0)
--- NOTE | 2017-06-08 12:21 | HHI.PYPN ---
Subjective Remarks Patient seen and examined with nurse. Chart reviewed. Case discussed with nursing staff. On my examination today, the patient is in good spirits. He denies AVH, although I did note that he was self-dialoguing some prior to my entering his room. He tells me he was speaking to someone else when I ask about this. No SI or HI. No side effects from medications. No physical complaints. Review of Systems ROS Limitations: Poor Historian Except as stated in HPI: all other systems reviewed are Neg Objective Alert: Yes [place]: Person, Place Mood: Calm Affect: Appropriate, Euthymic Memory Intact: Comment (fair on clinical exam) Hallucinations: Other (Denies AVH but see above) Delusions: No Delusion Type: Other (No delusional material) Suicidal: Ideation (no SI) Homicidal: Ideation (no HI) Insight/Judgment Poor Remarks No motoric abnormalities noted. Small non-tender nodule at blood draw site, no erythema, no warmth; suspect small hematoma, will follow. Labs Test 06/08/17 07:04 White Blood Count 5.9 TH/MM3 Red Blood Count 5.18 MIL/MM3 Hemoglobin 12.5 GM/DL Hematocrit 38.8 % Mean Corpuscular Volume 74.9 FL Mean Corpuscular Hemoglobin 24.0 PG Mean Corpuscular Hemoglobin Concent 32.1 % Red Cell Distribution Width 14.9 % Platelet Count 182 TH/MM3 Mean Platelet Volume 10.3 FL Neutrophils (%) (Auto) 49.5 % Lymphocytes (%) (Auto) 30.2 % Monocytes (%) (Auto) 14.0 % Eosinophils (%) (Auto) 5.6 % Basophils (%) (Auto) 0.7 % Neutrophils # (Auto) 2.9 TH/MM3 Lymphocytes # (Auto) 1.8 TH/MM3 Monocytes # (Auto) 0.8 TH/MM3 Eosinophils # (Auto) 0.3 TH/MM3 Basophils # (Auto) 0.0 TH/MM3 CBC Comment DIFF FINAL Differential Comment Blood Urea Nitrogen 11 MG/DL Creatinine 0.89 MG/DL Random Glucose 68 MG/DL Total Protein 6.9 GM/DL Albumin 3.1 GM/DL Calcium Level 8.9 MG/DL Alkaline Phosphatase 41 U/L Aspartate Amino Transf (AST/SGOT) 8 U/L Alanine Aminotransferase (ALT/SGPT) 15 U/L Total Bilirubin 0.2 MG/DL Sodium Level 139 MEQ/L Potassium Level 4.4 MEQ/L Chloride Level 104 MEQ/L Carbon Dioxide Level 31.1 MEQ/L Anion Gap 4 MEQ/L Estimat Glomerular Filtration Rate 115 ML/MIN Labs reviewed. CBC reveals stable anemia. CMP reveals mild hypoglycemia in a fasting sample. Vitals/IOs Vital Signs Date Time Temp Pulse Resp B/P (MAP) Pulse Ox O2 Delivery O2 Flow Rate FiO2 06/08/17 05:59 97.9 54 16 108/70 (83) 06/07/17 18:47 99 Intake and Output 06/08/17 06/08/17 06/09/17 08:00 16:00 00:00 Intake Total 600 ml Balance 600 ml Assessment & Plan Problem List: (1) Schizophrenia ICD Codes: F20.9 - Schizophrenia, unspecified Status: Acute (2) Cannabis abuse ICD Codes: F12.10 - Cannabis abuse, uncomplicated Status: Chronic Assessment & Plan Continue current psychotropics as ordered. Could consider further tapering of patient's oral Prolixin. Continue to monitor on the inpatient unit. Continue other medications and care as ordered. Justification for Cont. Inpt. Risk for decompensation in less restrictive environment Discharge Planning Placement Request HC Surrog/Guard Advoc?: Yes Problem Qualifiers (1) Schizophrenia: Qualified Codes: F20.3 - Undifferentiated schizophrenia Mt Bhat MD Jun 08, 2017 12:21
[2017-06-08 18:14] VITALS: BP 115/79; PULSE 80; RESP 18; TEMP 98.6; O2SAT 100
[2017-06-08] MEDS: OLANZapine ODT 20 MG TAB PO SCH (20:54)
[2017-06-08] MEDS: diphenhydrAMINE HCL 50 MG CAP - HS PRN PO (21:40)
[2017-06-09 05:24] VITALS: BP 123/80; PULSE 66; RESP 17; TEMP 97.3; O2SAT 100
[2017-06-09] MEDS: LORazepam 1 MG TAB PO PRN (08:30)
[2017-06-09] MEDS: BENZTROPINE MESYLATE 1 MG TAB PO SCH ×2 (08:44→20:38)
[2017-06-09] MEDS: DIVALPROEX SODIUM E.R. 500 MG TAB PO SCH ×2 (08:44→20:38)
[2017-06-09] MEDS: amLODIPine BESYLATE 5 MG TAB PO SCH (08:44)
[2017-06-09] MEDS: OLANZapine 2.5 MG TAB PO SCH (08:44)
--- NOTE | 2017-06-09 11:16 | HHI.PYPN ---
Subjective Remarks Patient seen and examined. Chart reviewed. Case discussed with nursing staff who reports that the patient is somewhat more symptomatic this morning with internal stimulation and odd ideation about fish noted by the nurse. On my examination today, the patient seems to be fairly appropriate in conversation. He tells me that he has found the number for a friend by the name of Gavino and has spoken with this friend who reportedly has said that the patient may live with him. He is becoming more ambivalent about assisted living placement. He doesn't like the idea that his mother is involved in his decision making, noting that he is a 42-year-old man and should be doing this himself. No psychotic symptoms displayed to me. Denies side effects from medications. No physical complaints. Review of Systems ROS Limitations: Poor Historian Except as stated in HPI: all other systems reviewed are Neg Objective Alert: Yes [place]: Person, Place Mood: Calm Affect: Appropriate Memory Intact: Comment (fair) Hallucinations: Other (no AVH) Delusions: No Delusion Type: Other (No delusional material) Suicidal: Ideation (no SI) Homicidal: Ideation (no HI) Insight/Judgment Poor Remarks No motor abnormalities noted Labs Labs reviewed Vitals/IOs Vital Signs Date Time Temp Pulse Resp B/P (MAP) Pulse Ox O2 Delivery O2 Flow Rate FiO2 06/09/17 05:24 97.3 66 17 123/80 (94) 100 Assessment & Plan Problem List: (1) Schizophrenia ICD Codes: F20.9 - Schizophrenia, unspecified Status: Acute (2) Cannabis abuse ICD Codes: F12.10 - Cannabis abuse, uncomplicated Status: Chronic Assessment & Plan Continue to monitor on the inpatient unit. To consider titration of patient's Zyprexa or re-titration of Prolixin supplementing Prolixin Decanoate if psychotic symptoms persist or worsen. Continue other medications and care as ordered. Justification for Cont. Inpt. High risk for decompensation in less restrictive environment. Possibly some degree of impairment in reality construction, although again his examination with me today did not suggest this. Discharge Planning Placement Request HC Surrog/Guard Advoc?: Yes Problem Qualifiers (1) Schizophrenia: Qualified Codes: F20.3 - Undifferentiated schizophrenia Mt Bhat MD Jun 09, 2017 11:16
[2017-06-09 18:26] VITALS: BP 123/83; PULSE 63; RESP 16; TEMP 97.7; O2SAT 100
[2017-06-09] MEDS: OLANZapine ODT 20 MG TAB PO SCH (20:38)
[2017-06-10 06:27] VITALS: BP 115/73; PULSE 63; RESP 18; TEMP 99.1; O2SAT 100
[2017-06-10] MEDS: OLANZapine 2.5 MG TAB PO SCH (08:43)
[2017-06-10] MEDS: DIVALPROEX SODIUM E.R. 500 MG TAB PO SCH ×2 (08:43→23:06)
[2017-06-10] MEDS: amLODIPine BESYLATE 5 MG TAB PO SCH (08:44)
[2017-06-10] MEDS: BENZTROPINE MESYLATE 1 MG TAB PO SCH ×2 (08:45→23:07)
--- NOTE | 2017-06-10 14:18 | HHI.PYPN ---
Subjective Remarks Pt seen and discussed with staff. He continues to respond to internal stimuli with verbal outbursts, but has not been aggressive. He is compliant with medications and denies side effects. NO SI/HI Objective Alert: Yes [place]: Person, Place Mood: Calm Affect: Appropriate Memory Intact: Comment (fair) Hallucinations: Auditory Delusions: No Delusion Type: Other (No delusional material) Suicidal: Ideation (no SI) Homicidal: Ideation (no HI) Insight/Judgment poor Vitals/IOs Vital Signs Date Time Temp Pulse Resp B/P (MAP) Pulse Ox O2 Delivery O2 Flow Rate FiO2 06/10/17 06:27 99.1 63 18 115/73 (87) 100 Assessment & Plan Problem List: (1) Schizophrenia ICD Codes: F20.9 - Schizophrenia, unspecified Status: Acute (2) Cannabis abuse ICD Codes: F12.10 - Cannabis abuse, uncomplicated Status: Chronic Assessment & Plan Continue current tx plan. Estimated LOS: days Justification for Cont. Inpt. risk of decompensation Request HC Surrog/Guard Advoc?: Yes Problem Qualifiers (1) Schizophrenia: Qualified Codes: F20.3 - Undifferentiated schizophrenia Tawanna Acosta MD Jun 10, 2017 14:18
[2017-06-10 18:41] VITALS: BP 130/88; PULSE 75; RESP 18; TEMP 97.9; O2SAT 91
[2017-06-10] MEDS: OLANZapine ODT 20 MG TAB PO SCH (21:00)
[2017-06-11 06:31] VITALS: BP 98/56; PULSE 60; RESP 18; TEMP 97.3; O2SAT 99
[2017-06-11] MEDS: BENZTROPINE MESYLATE 1 MG TAB PO SCH (08:20)
[2017-06-11] MEDS: amLODIPine BESYLATE 5 MG TAB PO SCH (08:21)
[2017-06-11] MEDS: OLANZapine 2.5 MG TAB PO SCH (08:21)
[2017-06-11] MEDS: DIVALPROEX SODIUM E.R. 500 MG TAB PO SCH ×2 (08:21→22:06)
--- NOTE | 2017-06-11 15:46 | HHI.PYPN ---
Subjective Remarks Pt seen and discussed with staff. Decreased internal stimulation today. Pleasant and cooperative. Medication compliant and denies side effects. He states that he needs to sign himself out today and that he does not need treatment. No SI/HI. Objective Alert: Yes [place]: Person, Place, Date Mood: Calm Affect: Appropriate Memory Intact: Comment (intact) Hallucinations: Auditory Delusions: No Delusion Type: Other (No delusional material) Suicidal: Ideation (no SI) Homicidal: Ideation (no HI) Insight/Judgment poor Vitals/IOs Vital Signs Date Time Temp Pulse Resp B/P (MAP) Pulse Ox O2 Delivery O2 Flow Rate FiO2 06/11/17 06:31 97.3 60 18 98/56 (70) 99 Intake and Output 06/11/17 06/11/17 06/12/17 08:00 16:00 00:00 Intake Total 240 ml Balance 240 ml Assessment & Plan Problem List: (1) Schizophrenia ICD Codes: F20.9 - Schizophrenia, unspecified Status: Acute (2) Cannabis abuse ICD Codes: F12.10 - Cannabis abuse, uncomplicated Status: Chronic Assessment & Plan Continue current tx plan. Estimated LOS: days Justification for Cont. Inpt. risk of decompensation Request HC Surrog/Guard Advoc?: Yes Problem Qualifiers (1) Schizophrenia: Qualified Codes: F20.3 - Undifferentiated schizophrenia Tawanna Acosta MD Jun 11, 2017 15:46
[2017-06-11 18:30] VITALS: BP 130/86; PULSE 62; RESP 18; TEMP 98.6; O2SAT 100
[2017-06-11] MEDS: OLANZapine ODT 20 MG TAB PO SCH (21:00)
[2017-06-11] MEDS: BENZTROPINE MESYLATE 2 MG TAB PO SCH (22:07)
[2017-06-12 04:47] VITALS: BP 133/85; PULSE 56; RESP 18; TEMP 98.1; O2SAT 98
[2017-06-12] MEDS: OLANZapine 2.5 MG TAB PO SCH (08:38)
[2017-06-12] MEDS: BENZTROPINE MESYLATE 2 MG TAB PO SCH ×2 (08:38→21:22)
[2017-06-12] MEDS: amLODIPine BESYLATE 5 MG TAB PO SCH (08:38)
[2017-06-12] MEDS: DIVALPROEX SODIUM E.R. 500 MG TAB PO SCH ×2 (08:38→21:22)
--- NOTE | 2017-06-12 12:33 | HHI.PYPN ---
Subjective Remarks Patient seen and examined with counselor. Chart reviewed. Case discussed with nursing staff. On my exam, insight into mental illness and need for treatment remain poor. Continues to want to go stay with Gavino. Denies SI/HI/AVH. Denies side effects from medications. No physical complaints. Review of Systems ROS Limitations: Poor Historian Except as stated in HPI: all other systems reviewed are Neg Objective Alert: Yes [place]: Person, Place, Date Mood: Calm Affect: Appropriate Memory Intact: Comment (not formally assessed) Hallucinations: Other (denies AVH) Delusions: No Delusion Type: Other (no delusions) Suicidal: Ideation (denies) Homicidal: Ideation (denies) Insight/Judgment Poor Remarks No abnormal motor movements noted. Labs Labs reviewed Vitals/IOs Vital Signs Date Time Temp Pulse Resp B/P (MAP) Pulse Ox O2 Delivery O2 Flow Rate FiO2 06/12/17 04:47 98.1 56 18 133/85 (101) 98 Intake and Output 06/12/17 06/12/17 06/13/17 08:00 16:00 00:00 Intake Total 260 ml 260 ml Balance 260 ml 260 ml Assessment & Plan Problem List: (1) Schizophrenia ICD Codes: F20.9 - Schizophrenia, unspecified Status: Acute (2) Cannabis abuse ICD Codes: F12.10 - Cannabis abuse, uncomplicated Status: Chronic Assessment & Plan Counselor to reach out to Gavino as well as patient's mother to discuss alternative discharge plans, but for now [facility] placement seems like the best option. Absent a safe discharge plan at present, we will retain patient on unit. Continue current psychotropics as ordered. Continue other medications and care as ordered. Justification for Cont. Inpt. High risk for decompensation in less restrictive environment. Discharge Planning Placement once patient receives his check after the first of the month. Request HC Surrog/Guard Advoc?: Yes Problem Qualifiers (1) Schizophrenia: Qualified Codes: F20.3 - Undifferentiated schizophrenia Mt Bhat MD Jun 12, 2017 12:33
[2017-06-12] MEDS: OLANZapine ODT 20 MG TAB PO SCH (21:00)
[2017-06-13 06:00] VITALS: BP 105/60; PULSE 59; RESP 18; TEMP 99.5; O2SAT 99
[2017-06-13] MEDS: OLANZapine 2.5 MG TAB PO SCH (09:33)
[2017-06-13] MEDS: amLODIPine BESYLATE 5 MG TAB PO SCH (09:33)
[2017-06-13] MEDS: BENZTROPINE MESYLATE 2 MG TAB PO SCH ×2 (09:33→20:34)
[2017-06-13] MEDS: DIVALPROEX SODIUM E.R. 500 MG TAB PO SCH ×2 (09:38→20:34)
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
[2017-06-13 17:15] VITALS: BP 139/91; PULSE 67; RESP 17; TEMP 98.4; O2SAT 99
[2017-06-13] MEDS: OLANZapine ODT 20 MG TAB PO SCH (20:35)
[2017-06-14 06:16] VITALS: BP 123/85; PULSE 63; RESP 20; TEMP 97.7; O2SAT 100
[2017-06-14] MEDS: OLANZapine 5 MG TAB PO SCH (09:00)
--- NOTE | 2017-06-14 09:26 | PD.TTN ---
Patient Problems 1. Discharge planning 2. Medication compliance 3. Knowledge deficit 4. Lack of coping skills Progress Toward Goals Provider Present: Dr. Yvon Bhat Provider Input: Pt is compliant with medications but did deny taking Prolixin. Nurse(s) Present: Petar Lee RN Nurse(s) Input: Pt is evasive and is often found isloative laying in bed. Patient does not have major behavioral issues on the unit, though is somewhat hyperverbal. Psychiatric Counselors Present: LIBIA Alejandre Talia Moussly, [facility] Psych Therapist Input: Patient continues to be fixated on discharge and going to live with a friend in [facility]. Patient was visited by Gus from [facility] but upon assessment, patient denied wanting to be in placement. Patient is intrusive to counselor and has poor boundaries. Group Spec/RT/OT/BERMEO Present: JEAN-CLAUDE Rankin Group Spec/RT/OT/BERMEO Input: Pt very rarely attends structured groups. Pt will participate in card games with recreational therapist. Discharge Plan [facility], Other Pt will be linked with an [facility] as it is believed that he will require this structured setting due to history of noncompliance and poor behavior at home. He cannot return to mother's home at this time. Documentation Scribe: LIBIA Alejandre Talia [facility] Jun 14, 2017 09:26
[2017-06-14] MEDS: DIVALPROEX SODIUM E.R. 500 MG TAB PO SCH ×2 (09:38→20:26)
[2017-06-14] MEDS: amLODIPine BESYLATE 5 MG TAB PO SCH (09:38)
[2017-06-14] MEDS: BENZTROPINE MESYLATE 2 MG TAB PO SCH ×2 (09:38→20:26)
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
[2017-06-14 18:00] VITALS: BP 147/83; PULSE 66; RESP 18; TEMP 98.4; O2SAT 100
[2017-06-14] MEDS: OLANZapine ODT 20 MG TAB PO SCH (20:28)
[2017-06-15 05:44] VITALS: BP 123/75; PULSE 61; RESP 16; TEMP 97.8; O2SAT 99
[2017-06-15] MEDS: BENZTROPINE MESYLATE 2 MG TAB PO SCH ×2 (08:21→21:09)
[2017-06-15] MEDS: amLODIPine BESYLATE 5 MG TAB PO SCH (08:21)
[2017-06-15] MEDS: DIVALPROEX SODIUM E.R. 500 MG TAB PO SCH ×2 (08:21→21:08)
[2017-06-15] MEDS: OLANZapine 5 MG TAB PO SCH (08:22)
--- NOTE | 2017-06-15 15:11 | HHI.PYPN ---
Subjective Remarks Patient seen and examined. Chart reviewed. Case discussed with RN. On my exam , patient is in good spirits. He says that he was hoping to get a visit from his mother last night, but she couldn't make it. He takes some pride in the fact that he asked his RN for his psychotropics today. No SI/HI. No messages from the TV today. Relevant in conversation. No side effects from medications. No physical complaints. Review of Systems Except as stated in HPI: all other systems reviewed are Neg Objective Alert: Yes [place]: Person, Place, Date Mood: Calm Affect: Euthymic Memory Intact: Comment (not formally assessed) Hallucinations: Other (no AVH) Delusions: No Delusion Type: Other (no delusions today) Suicidal: Ideation (no SI) Homicidal: Ideation (no HI) Insight/Judgment Poor Remarks No motor abnormalities noted Labs Labs reviewed Vitals/IOs Vital Signs Date Time Temp Pulse Resp B/P (MAP) Pulse Ox O2 Delivery O2 Flow Rate FiO2 06/15/17 05:44 97.8 61 16 123/75 (91) 99 Assessment & Plan Problem List: (1) Schizophrenia ICD Codes: F20.9 - Schizophrenia, unspecified Status: Acute (2) Cannabis abuse ICD Codes: F12.10 - Cannabis abuse, uncomplicated Status: Chronic Assessment & Plan Continue current psychotropics as ordered including Zyprexa and Prolixin plus Prolixin Decanoate. Continue to monitor on the inpatient unit. Continue other medications and care as ordered. Justification for Cont. Inpt. Risk for decompensation and less restrictive environment. Discharge Planning Placement. I have left a voicemail with the counselor to discuss the case. Request HC Surrog/Guard Advoc?: Yes Problem Qualifiers (1) Schizophrenia: Qualified Codes: F20.3 - Undifferentiated schizophrenia Mt Bhat MD Jun 15, 2017 15:11
[2017-06-15 20:22] VITALS: BP 149/94; PULSE 61; RESP 18; TEMP 98.6; O2SAT 99
[2017-06-15] MEDS: OLANZapine ODT 20 MG TAB PO SCH (21:13)
[2017-06-16 06:32] VITALS: BP 114/70; PULSE 56; RESP 18; TEMP 98.2; O2SAT 100
[2017-06-16] MEDS: amLODIPine BESYLATE 5 MG TAB PO SCH (08:50)
[2017-06-16] MEDS: BENZTROPINE MESYLATE 2 MG TAB PO SCH ×2 (08:50→21:00)
[2017-06-16] MEDS: DIVALPROEX SODIUM E.R. 500 MG TAB PO SCH ×2 (08:51→21:00)
[2017-06-16] MEDS: OLANZapine 5 MG TAB PO SCH (08:51)
--- NOTE | 2017-06-16 11:54 | HHI.PYPN ---
Subjective Remarks Patient seen and examined. Chart reviewed. Case discussed with nursing staff. On my examination today, the patient is in good spirits. He says that the medications "help keep my mind clear of sound waves." No AVH at present. No SI or HI. Denies side effects from medications. No physical complaints. Review of Systems Except as stated in HPI: all other systems reviewed are Neg Objective Alert: Yes [place]: Person, Place, Date Mood: Calm Affect: Euthymic Memory Intact: Comment (not formally assessed) Hallucinations: Other (no AVH) Delusions: No Delusion Type: Other (no delusional material) Suicidal: Ideation (no SI voiced) Homicidal: Ideation (no HI voiced) Insight/Judgment Poor Remarks TP fairly linear. Speech wnl rate, tone, volume. Labs Labs reviewed. Vitals/IOs Vital Signs Date Time Temp Pulse Resp B/P (MAP) Pulse Ox O2 Delivery O2 Flow Rate FiO2 06/16/17 06:32 98.2 56 18 114/70 (85) 100 Assessment & Plan Problem List: (1) Schizophrenia ICD Codes: F20.9 - Schizophrenia, unspecified Status: Acute (2) Cannabis abuse ICD Codes: F12.10 - Cannabis abuse, uncomplicated Status: Chronic Assessment & Plan Continue current psychiatric medications as ordered. Continue other medications and care as ordered. Justification for Cont. Inpt. High risk for decompensation in less restrictive environment Discharge Planning Placement. Request HC Surrog/Guard Advoc?: Yes Problem Qualifiers (1) Schizophrenia: Qualified Codes: F20.3 - Undifferentiated schizophrenia Mt Bhat MD Jun 16, 2017 11:54
[2017-06-16 17:02] VITALS: BP 151/86; PULSE 78; RESP 17; TEMP 98.7; O2SAT 100
[2017-06-16] MEDS: OLANZapine ODT 20 MG TAB PO SCH (21:00)
[2017-06-17] MEDS: diphenhydrAMINE HCL 50 MG CAP - HS PRN PO ×2 (04:07→22:05)
[2017-06-17 06:06] VITALS: BP 135/98; PULSE 63; RESP 18; TEMP 97.6; O2SAT 100
[2017-06-17] MEDS: OLANZapine 5 MG TAB PO SCH (09:00)
[2017-06-17] MEDS: DIVALPROEX SODIUM E.R. 500 MG TAB PO SCH ×2 (09:12→21:22)
[2017-06-17] MEDS: BENZTROPINE MESYLATE 2 MG TAB PO SCH ×2 (09:13→21:21)
[2017-06-17] MEDS: amLODIPine BESYLATE 5 MG TAB PO SCH (09:13)
--- NOTE | 2017-06-17 15:22 | HHI.PYPN ---
Subjective Remarks Patient was seen and case discussed with nursing. Patient is pleasant and cooperative with exam. Remains perseverative on discharge. Some occasional vigilance asking who is coming in and out of his room. Less perseverative compared to her meeting 2 weeks ago. Compliant with medications and behaving well on the unit. Denies psychotic symptoms Objective Alert: Yes [place]: Person, Place, Date Mood: Calm Affect: Euthymic Memory Intact: Comment (not formally assessed) Hallucinations: Other (no AVH) Delusions: No Delusion Type: Paranoid (vigilance) Suicidal: Ideation (no SI voiced) Homicidal: Ideation (no HI voiced) Insight/Judgment Improving Vitals/IOs Vital Signs Date Time Temp Pulse Resp B/P (MAP) Pulse Ox O2 Delivery O2 Flow Rate FiO2 06/17/17 06:06 97.6 63 18 135/98 (110) 100 Assessment & Plan Problem List: (1) Schizophrenia ICD Codes: F20.9 - Schizophrenia, unspecified Status: Acute (2) Cannabis abuse ICD Codes: F12.10 - Cannabis abuse, uncomplicated Status: Chronic Assessment & Plan Continue current treatment plan Justification for Cont. Inpt. Patient would decompensate in a less restrictive setting Request HC Surrog/Guard Advoc?: Yes Problem Qualifiers (1) Schizophrenia: Qualified Codes: F20.3 - Undifferentiated schizophrenia Elkin Christopher DO Jun 17, 2017 15:22
[2017-06-17] MEDS: OLANZapine ODT 20 MG TAB PO SCH (21:00)
[2017-06-18] MEDS: amLODIPine BESYLATE 5 MG TAB PO SCH (08:38)
[2017-06-18] MEDS: BENZTROPINE MESYLATE 2 MG TAB PO SCH ×2 (08:38→20:40)
[2017-06-18] MEDS: OLANZapine 5 MG TAB PO SCH (08:38)
[2017-06-18] MEDS: DIVALPROEX SODIUM E.R. 500 MG TAB PO SCH ×2 (08:39→20:40)
--- NOTE | 2017-06-18 11:11 | HHI.PYPN ---
Subjective Remarks Patient was seen and case discussed with nursing. Patient is pleasant and cooperative with exam. Somewhat hyperverbal. He describes a hearing other people's thoughts with the help of angels. He says these symptoms have lessened since he started medications. Behaving well on the unit Objective Alert: Yes [place]: Person, Place, Date Mood: Calm Affect: Euthymic Memory Intact: Comment (not formally assessed) Hallucinations: Other (no AVH) Delusions: No Delusion Type: Other (bizarre) Suicidal: Ideation (no SI voiced) Homicidal: Ideation (no HI voiced) Insight/Judgment Poor Vitals/IOs Vital Signs Date Time Temp Pulse Resp B/P (MAP) Pulse Ox O2 Delivery O2 Flow Rate FiO2 06/17/17 06:06 97.6 63 18 135/98 (110) 100 Assessment & Plan Problem List: (1) Schizophrenia ICD Codes: F20.9 - Schizophrenia, unspecified Status: Acute (2) Cannabis abuse ICD Codes: F12.10 - Cannabis abuse, uncomplicated Status: Chronic Assessment & Plan Continue current treatment plan Justification for Cont. Inpt. Patient will decompensate in a less restrictive setting Request HC Surrog/Guard Advoc?: Yes Problem Qualifiers (1) Schizophrenia: Qualified Codes: F20.3 - Undifferentiated schizophrenia Elkin Christopher DO Jun 18, 2017 11:11
[2017-06-18 17:57] VITALS: BP 138/84; PULSE 72; RESP 16; TEMP 98.5; O2SAT 97
[2017-06-18] MEDS: diphenhydrAMINE HCL 50 MG CAP - HS PRN PO (20:40)
[2017-06-18] MEDS: OLANZapine ODT 20 MG TAB PO SCH (20:41)
[2017-06-19 06:38] VITALS: BP 121/77; PULSE 71; RESP 16; TEMP 97.7; O2SAT 99
[2017-06-19] MEDS: DIVALPROEX SODIUM E.R. 500 MG TAB PO SCH (08:34)
[2017-06-19] MEDS: amLODIPine BESYLATE 5 MG TAB PO SCH (08:34)
[2017-06-19] MEDS: OLANZapine 5 MG TAB PO SCH (08:35)
[2017-06-19] MEDS: BENZTROPINE MESYLATE 2 MG TAB PO SCH (08:35)
[2017-06-19] MEDS ORDERED: Benztropine PO (12:09)
[2017-06-19] MEDS ORDERED: OLAN5TAB PO (12:09)
[2017-06-19] MEDS ORDERED: DEPA500T3 PO (12:09)
[2017-06-19] MEDS ORDERED: OLANZ20 PO (12:09)
[2017-06-19] MEDS ORDERED: FLUP5TAB PO (12:09)
[2017-06-19] MEDS ORDERED: AMLO5 PO (12:09)
[2017-06-19] MEDS ORDERED: FLUP1INJ IM (12:09)
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
== END 2017-06-19 13:58 | disposition home or self-care (01) | DRG 885 ==
LOC: NEDAMB 15:47 → NEDA 21:38 → H270 22:21 → H260 06-07 14:00
PROVIDERS: ADMIT Psychiatry & Neurology Psychiatry; ATTEND Psychiatry & Neurology Psychiatry
DX: F20.3 Undifferentiated schizophrenia (principal); Z91.14 Patient's other noncompliance with medication regimen; F12.10 Cannabis abuse, uncomplicated; Z72.0 Tobacco use
CPT/HCPCS: 80053; 80164; 80307; 85025; 96372; J1630; J2060; J2680; Q0163

== ENCOUNTER 2018-06-27 23:35 | Inpatient (IN) ==
[2018-06-28] MEDS ORDERED: Sod Chloride 0.9% Inj 1,000 ML IV.SIG SCH (02:15)
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
[2018-06-28 02:44] LABS: Baso # (Auto) 0.1 th/mm3 (0.0-0.2); Baso % (Auto) 0.7 % (0.0-2.0); Eos % (Auto) 0.3 % (0.0-4.0); Hematocrit 35.6 % (39.0-51.0); Hemoglobin 11.4 gm/dL (13.0-17.0); Lymph # (Auto) 1.2 th/mm3 (1.0-4.8); Lymph % (Auto) 8.9 % (9.0-44.0); Mean Corpuscular HGB Conc 32.1 % (32.0-36.0); Mean Corpuscular Hemoglobin 24.7 pg (27.0-34.0); Mean Corpuscular Volume 77.1 fL (80.0-100.0); Mean Platelet Volume 8.4 fL (7.0-11.0); Mono # (Auto) 0.9 th/mm3 (0.0-0.9); Mono % (Auto) 6.8 % (0.0-8.0); Neut % (Auto) 83.3 % (16.0-70.0); Platelet Count 319 th/mm3 (150-450); Red Blood Count 4.61 mil/mm3 (4.50-5.90); Red Cell Distribution Width 14.6 % (11.6-17.2); White Blood Count 13.2 th/mm3 (4.0-11.0)
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
[2018-06-28 02:53] LABS: Amphetamine Screen,Urine Neg (Neg); Barbiturate Screen,Urine Neg (Neg); Cannabinoid Screen,Urine Pos (Neg); Cocaine Screen,Urine Neg (Neg)
[2018-06-28 02:56] LABS: Opiate Screen,Urine Neg (Neg)
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
[2018-06-28 03:03] LABS: Alanine Aminotransferase 22 U/L (12-78); Albumin 2.9 g/dL (3.4-5.0); Anion Gap 8 meq/L (5-15); Aspartate Aminotransferase 23 U/L (15-37); Blood Urea Nitrogen 16 mg/dL (7-18); Calcium 8.5 mg/dL (8.5-10.1); Carbon Dioxide 26.7 meq/L (21.0-32.0); Chloride 106 meq/L (98-107); Glomerular Filtration Rate 89 mL/min (>89); Glucose,Random 89 mg/dL (74-106); Sodium 141 meq/L (136-145)
[2018-06-28 03:13] LABS: Alkaline Phosphatase 54 U/L (45-117); Total Protein 7.3 g/dL (6.4-8.2)
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
[2018-06-28] MEDS ORDERED: Aluminum/Magnesium/Simethacone Susp 30 ML UDC PO PRN (14:46)
[2018-06-29 08:43] LABS: Anion Gap 9 meq/L (5-15); Blood Urea Nitrogen 13 mg/dL (7-18); Calcium 8.5 mg/dL (8.5-10.1); Carbon Dioxide 25.4 meq/L (21.0-32.0); Chloride 106 meq/L (98-107); Cholesterol 131 mg/dL (120-200); Glomerular Filtration Rate Greater Than 89 mL/min (>89); Glucose,Random 80 mg/dL (74-106); Potassium 3.8 meq/L (3.5-5.1); Sodium 140 meq/L (136-145)
[2018-06-29 08:46] LABS: Chol/HDL Ratio 3.25 Ratio; HDL Cholesterol 40.2 mg/dL (40.0-60.0); LDL Cholesterol,Calculated 79 mg/dL (0-99); Triglycerides 57 mg/dL (42-150)
[2018-06-29] MEDS ORDERED: Acetaminophen 325 MG Tablet PO PRN (11:08)
[2018-06-29] MEDS ORDERED: Melatonin 5 MG Tablet PO PRN (11:08)
[2018-06-29] MEDS ORDERED: Benztropine Inj 2 MG/2 ML Ampul IM PRN (11:08)
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
[2018-06-29] MEDS ORDERED: LORazepam 1 MG Tablet PO PRN (12:00)
[2018-06-29] MEDS: OLANZapine 20 MG Tab.Rapdis PO SCH (21:22)
[2018-06-30 08:29] LABS: Baso # (Auto) 0.1 th/mm3 (0.0-0.2); Baso % (Auto) 0.7 % (0.0-2.0); Eos # (Auto) 0.1 th/mm3 (0.0-0.4); Hematocrit 37.8 % (39.0-51.0); Hemoglobin 12.5 gm/dL (13.0-17.0); Lymph # (Auto) 1.8 th/mm3 (1.0-4.8); Lymph % (Auto) 25.1 % (9.0-44.0); Mean Corpuscular HGB Conc 32.9 % (32.0-36.0); Mean Corpuscular Hemoglobin 24.9 pg (27.0-34.0); Mean Corpuscular Volume 75.6 fL (80.0-100.0); Mean Platelet Volume 8.3 fL (7.0-11.0); Mono # (Auto) 0.5 th/mm3 (0.0-0.9); Mono % (Auto) 6.8 % (0.0-8.0); Neut # (Auto) 4.7 th/mm3 (1.8-7.7); Neut % (Auto) 65.4 % (16.0-70.0); Platelet Count 381 th/mm3 (150-450); Red Blood Count 5.01 mil/mm3 (4.50-5.90); Red Cell Distribution Width 14.6 % (11.6-17.2); White Blood Count 7.2 th/mm3 (4.0-11.0)
--- NOTE | 2018-06-30 13:33 | ECG ---
Date Performed: 06/29/2018 Time Performed: 14:26:17 PTAGE: 43 years EKG: SINUS BRADYCARDIA WITH SINUS ARRHYTHMIA MODERATE VOLTAGE CRITERIA FOR LVH, CONSIDER NORMAL VARIANT BORDERLINE ECG ST CHANGES COMPATIBLE WITH EARLY REPOLARIZATION Since PREVIOUS TRACING , no significant change noted PREVIOUS TRACIN05/11/2017 09.46 DOCTOR: Scooby Moss Interpretating Date/Time 06/30/2018 13:31:03
--- NOTE | 2018-06-30 18:24 | P.PNPSY ---
Subjective Chief Complaint: Psychosis Remarks: Reviewed electronic medical records and discussed case with staff. Follow-up was conducted in the patient's room with SHAHRZAD Cooper present. Patient states that he is "doing pretty good". States he sleeping and eating well. Earlier today the nurse relayed that when she entered the patient's room he was unintelligible and his speech. However, at this time he is organized, logical, and fairly clear. He does have rapid and somewhat pressured speech. H he reports his mood is good and his affect is euthymic. Mental Status Examination Appearance: Disheveled Consciousness: Alert Orientation: Person, Place (At least) Motor Activity: Normal gait Speech: Other (Somewhat loud) Language: Perseveration Fund of Knowledge: Adequate Attention and Concentration: Inadequate Memory: Unremarkable Mood: Anxious Affect: Labile, Anxious Thought Process & Associations: Disorganized Thought Content: Bizarre thinking, Hallucinations, Delusional Hallucination Type: Other (Appears internally stimulated) Delusion Type: Paranoid, Other (Ideas of reference) Suicidal Ideation: No Suicidal Plan: No Suicidal Intention: No Homicidal Ideation: Yes (As noted above) Homicidal Plan: No Homicidal Intention: No (No reported urge to hurt anyone on the inpatient unit) Insight: Poor Judgment: Poor Assessment and Plan - Assessment (1) Schizophrenia Code(s): F20.9 - Schizophrenia, unspecified Status: Acute - Plan Plan: Patient will be reevaluated Monday by the attending psychiatrist. Continue with current treatment plan. Justification for Continued Inpatient Stay: Moving this patient to a less restrictive environment would likely result in decompensation. Request Healthcare Surrogate/Guardian Advocate?: No (1) Schizophrenia Qualifiers: Schizophrenia type: paranoid schizophrenia Qualified Code(s): F20.0 - Paranoid schizophrenia
[2018-06-30] MEDS: OLANZapine 20 MG Tab.Rapdis PO SCH (21:07)
--- NOTE | 2018-07-01 16:05 | P.PNPSY ---
Subjective Chief Complaint: Psychosis Remarks: Reviewed electronic medical record and discussed patient with nursing staff. Patient is in the common area. He states that he has a cold and a cold sore on his lip. He is also complaining of irritation in his groin. Will place a hospitalist consult to rule out tinea cruris. Patient denies auditory or visual hallucinations. He is preoccupied with his SSDI. He states that when he left skilled nursing they did not arrange for him to re-instate his SSDI and make him the payee. He states that He was off of his medications for approximately one month. He is currently sleeping and eating well. Denies SI/HI. Review of Systems All other systems reviewed negative except as stated in HPI Mental Status Examination Appearance: Disheveled Consciousness: Alert Orientation: Person, Place (At least) Motor Activity: Normal gait Speech: Other (Somewhat loud) Language: Perseveration Fund of Knowledge: Adequate Attention and Concentration: Inadequate Memory: Unremarkable Mood: Anxious Affect: Labile, Anxious Thought Process & Associations: Disorganized Thought Content: Bizarre thinking, Hallucinations, Delusional Hallucination Type: Other (Appears internally stimulated) Delusion Type: Paranoid, Other (Ideas of reference) Suicidal Ideation: No Suicidal Plan: No Suicidal Intention: No Homicidal Ideation: Yes (As noted above) Homicidal Plan: No Homicidal Intention: No (No reported urge to hurt anyone on the inpatient unit) Insight: Poor Judgment: Poor Assessment and Plan - Assessment (1) Schizophrenia Code(s): F20.9 - Schizophrenia, unspecified Status: Acute - Plan Plan: Patient will be reevaluated Monday by the attending psychiatrist. Continue with current treatment plan. Justification for Continued Inpatient Stay: Moving patient to a less restrictive environment may lead to his decompensation. Request Healthcare Surrogate/Guardian Advocate?: No (1) Schizophrenia Qualifiers: Schizophrenia type: paranoid schizophrenia Qualified Code(s): F20.0 - Paranoid schizophrenia
[2018-07-01] MEDS: OLANZapine 20 MG Tab.Rapdis PO SCH (20:28)
[2018-07-02 06:15] VITALS: BP 123/73; PULSE 48; RESP 18; TEMP 98.2; O2SAT 95
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
== END 2018-07-02 15:55 | disposition home or self-care (01) ==
LOC: NEPC 23:35 → NEDA 06-28 14:55 → H270 06-28 18:40
PROVIDERS: ADMIT Psychiatry & Neurology Psychiatry; ATTEND Psychiatry & Neurology Psychiatry